=== PATIENT | male | born 1965 | race Caucasian/White ===

== ENCOUNTER → 2020-10-22 12:23 | Outpatient (BNVA) | payer OTHER, SELFPAY | PROVIDERS: PCP Internal Medicine; Referring Provider Internal Medicine; Visit Provider Nurse Practitioner | DX: K21.9 Gastro-esophageal reflux disease without esophagitis (principal); R10.13 Epigastric pain; K59.00 Constipation, unspecified; Z79.899 Other long term (current) drug therapy; Z87.891 Personal history of nicotine dependence | CPT/HCPCS: 99202 ==

== ENCOUNTER 2020-10-29 10:01 | Outpatient (REF) | payer OTHER, SELFPAY ==
[2020-10-29 11:24] LABS: Alanine Aminotransferase 50 U/L (0-40); Albumin Level 4.4 g/dL (3.5-5.0); Alkaline Phosphatase 103 U/L (39-117); Anion Gap 12 (12-20); Aspartate Amino Transferase 21 U/L (5-37); Bilirubin Total 1.9 mg/dL (0.0-1.0); Blood Urea Nitrogen 15 mg/dL (9-16); Calcium 9.7 mg/dL (8.4-10.2); Carbon Dioxide 27 mmol/L (22-29); Chloride 104 mmol/L (96-108); Estimated Glomerular Filt Rate > 60; Glucose Random 96 mg/dL (60-115); Potassium 4.1 mmol/l (3.3-5.1); Sodium 139 mmol/L (135-145); Total Protein 7.1 g/dL (6.5-8.0)
== END 2020-10-29 10:02 | disposition home or self-care (01) ==
LOC: HO.LAB 10:01
PROVIDERS: PCP Internal Medicine; Visit Provider Nurse Practitioner
DX: R10.13 Epigastric pain (principal); K59.00 Constipation, unspecified; K21.9 Gastro-esophageal reflux disease without esophagitis
CPT/HCPCS: 80053

== ENCOUNTER 2020-11-04 15:18 | Outpatient (REF) | payer OTHER, SELFPAY | END 2020-11-04 15:19 | disposition home or self-care (01) | LOC: HO.LAB 15:18 | PROVIDERS: Visit Provider Nurse Practitioner | DX: K21.9 Gastro-esophageal reflux disease without esophagitis (principal); K59.00 Constipation, unspecified; R10.13 Epigastric pain | CPT/HCPCS: 87338 ==

== ENCOUNTER → 2020-11-13 14:10 | Outpatient (BNVA) | payer OTHER, SELFPAY | PROVIDERS: PCP Internal Medicine; Visit Provider Nurse Practitioner | DX: Z13.89 Encounter for screening for other disorder (principal) | CPT/HCPCS: Q3014 ==

== ENCOUNTER → 2020-11-28 13:08 | Outpatient (BNVA) | payer OTHER, SELFPAY | PROVIDERS: PCP Internal Medicine; Visit Provider Nurse Practitioner | DX: Z13.89 Encounter for screening for other disorder (principal) | CPT/HCPCS: Q3014 ==

== ENCOUNTER 2020-12-20 07:16 | Outpatient (REF) | payer OTHER, SELFPAY | END 2020-12-20 07:17 | disposition home or self-care (01) | LOC: HO.LAB 07:16 | PROVIDERS: Visit Provider Internal Medicine | DX: Z20.822 Contact with and (suspected) exposure to COVID-19 (principal) | CPT/HCPCS: 36415; C9803; U0003 ==

== ENCOUNTER → 2020-12-26 13:44 | Outpatient (BNVA) | payer OTHER, SELFPAY | PROVIDERS: PCP Internal Medicine; Visit Provider Nurse Practitioner | DX: Z13.89 Encounter for screening for other disorder (principal) | CPT/HCPCS: Q3014 ==

== ENCOUNTER → 2021-01-09 15:10 | Outpatient (BNVA) | payer OTHER, SELFPAY | PROVIDERS: PCP Internal Medicine; Visit Provider Nurse Practitioner | DX: Z13.89 Encounter for screening for other disorder (principal) | CPT/HCPCS: Q3014 ==

== ENCOUNTER 2021-01-11 07:13 | Outpatient (REF) | payer OTHER, SELFPAY ==
[2021-01-11 08:16] LABS: Alanine Aminotransferase 38 U/L (0-40); Albumin Level 4.5 g/dL (3.5-5.0); Alkaline Phosphatase 116 U/L (39-117); Amylase 185 U/L (28-100); Anion Gap 12 (12-20); Aspartate Amino Transferase 20 U/L (5-37); Bilirubin Direct 0.3 mg/dL (0.0-0.5); Bilirubin Total 1.3 mg/dL (0.0-1.0); Blood Urea Nitrogen 18 mg/dL (9-16); C Reactive Protein 0.11 mg/dL (< or = 0.50); Calcium 9.9 mg/dL (8.4-10.2); Carbon Dioxide 31 mmol/L (22-29); Chloride 102 mmol/L (96-108); Cholesterol 222 mg/dL; Estimated Glomerular Filt Rate > 60; Glucose Fasting 97 mg/dL (60-99); HDL Cholesterol 49 mg/dL; LDL Cholesterol Calculated 118 mg/dl; Lactate Dehydrogenase 174 U/L (118-273); Lipase 47 U/L (8-78); Potassium 4.1 mmol/L (3.3-5.1); Sodium 141 mmol/L (135-145); Total Protein 7.2 g/dL (6.5-8.0); Triglycerides 277 mg/dL
[2021-01-11 08:38] LABS: Ferritin 185 ng/mL (20-250)
[2021-01-12 14:07] LABS: Anti Nuclear Antibody Screen NEGATIVE (NEGATIVE)
[2021-01-13 13:37] LABS: Mitochondrial Antibodies NEGATIVE (NEGATIVE)
[2021-01-15 00:32] LABS: Smooth Muscle Antibody <20 U (<20)
== END 2021-01-11 07:14 | disposition home or self-care (01) ==
LOC: HO.LAB 07:13
PROVIDERS: Absent Provider Nurse Practitioner; PCP Internal Medicine; Visit Provider Internal Medicine
DX: R10.13 Epigastric pain (principal); R17 Unspecified jaundice; R79.89 Other specified abnormal findings of blood chemistry; E78.5 Hyperlipidemia, unspecified
CPT/HCPCS: 80053; 80061; 82150; 82248; 82728; 83615; 83690; 86038; 86039; 86140; 86255; 86256

== ENCOUNTER → 2021-01-30 13:55 | Outpatient (BNVA) | payer OTHER, SELFPAY | PROVIDERS: PCP Internal Medicine; Visit Provider Nurse Practitioner | DX: Z13.89 Encounter for screening for other disorder (principal) | CPT/HCPCS: Q3014 ==

== ENCOUNTER → 2021-04-09 07:47 | Outpatient (REF) | payer OTHER, SELFPAY ==
--- NOTE | ~2021-04-09 | NM_ITS ---
EXAMINATION: RADIONUCLIDE SOLID FOOD GASTRIC EMPTYING 4-HOUR STUDY CLINICAL INFORMATION: Epigastric pain. COMPARISON: No previous gastric emptying study is available for comparison. TECHNIQUE: A standard meal consisting of 4 oz of Egg Beaters brand tagged with 1.0 mCi Tc-99m Sulfur Colloid, 8 oz water and 2 slices of toast with jelly was administered orally to the patient. Images were obtained using a dual head gamma camera in the anterior and posterior projections over of the stomach immediately post ingestion and at hourly intervals up to 3 hours post ingestion. Images were not obtained at 4 hours due to the minimal retention at 3 hours. The anterior and posterior counts at each time interval were averaged using the geometric mean and expressed as percentage of the immediate post ingestion counts. FINDINGS: There is good visualization of activity in the stomach immediately post ingestion. As the study progresses, there is good clearance of activity from the stomach and visualization of progressively increasing small bowel activity. By the end of the study, there is almost no retention noted in the stomach. Retention in the stomach at each time interval was: 1 hour 76% (normal 37%-90%) 2 hours 12% (normal 30%-60%) 3 hours 2% 4 hours (Not Obtained) (normal 0%-10%) NM/NM gastric emptying study IMPRESSION: Normal solid food gastric emptying study.
--- NOTE | ~2021-04-09 | XR_ITS ---
EXAMINATION: XR HAND, RIGHT CLINICAL INFORMATION: Pain COMPARISON: None TECHNIQUE: PA, lateral, and oblique views of the right hand. FINDINGS: Bone alignment is normal. No fracture or dislocation is seen. There is mild arthritis at the first [facility] joint with joint space narrowing and osteophyte formation. Soft tissues are unremarkable. XR/XR hand RT 2V IMPRESSION: Mild arthritis at the first [facility] joint.
== END ==
LOC: HO.NUCMED 07:47
PROVIDERS: PCP Internal Medicine; Visit Provider Nurse Practitioner
DX: R10.13 Epigastric pain (principal); M79.641 Pain in right hand
CPT/HCPCS: 73120; 78264; A9541

== ENCOUNTER 2021-04-22 10:00 | Outpatient (RCR) | payer OTHER, SELFPAY ==
--- NOTE | 2021-04-14 11:00 | MHC.OT.OEV ---
[address] [phone] F: [phone] Occupational Therapy Evaluation Diagnosis: Right hand pain Date of Onset: 12/30/20 Date of Surgery: Attending Provider: Dr Phu Villalta Prescribed Treatment: Eval and Jonathan CABRERA Follow Up Appointment: History of Current Condition: 55 yo male presents with persistent pain in right thumb. Was seen by housing director and now referred to OT for management of CMC arthritis. 04/09/21 X-ray FINDINGS: Bone alignment is normal. No fracture or dislocation is seen. There is mild arthritis at the first [facility] joint with joint space narrowing and osteophyte formation. Soft tissues are unremarkable. IMPRESSION: Mild arthritis at the first [facility] joint Significant Medical History: Precautions/Contraindications: Patient Goals: Decrease pain in hand/thumb Hand Dominance: Right Observations: QuickDASH Score: Prior Level of Function and Occupation Self Care, Employment, Leisure: Not working, pain in the back/waist/hip, watches a lot of tv, cleans his car, shares homecare with his mother Living Situation, Family and/or Social Support: Lives w/ his mother Current Level of Function and Occupation Self Care, Employment, Leisure: Difficulty picking up heavy objects, opening containers Sleep: No issues Driving: No issues Vision: Balance: Pain Assessment Pain Score: 5 Pain Scale Used: Numeric (0 - 10) Pain Location and Description: Right thumb base, sharp Aggravating Factors: Using the hand for heavy tasks, more pain at nighttime Alleviating Factors: None tried Skin and Soft Tissue Assessment Skin and Soft Tissue: Comments: Nerve assessment Ulnar Nerve: WFL Median Nerve: WFL Radial Nerve: WFL Comments: Sensory Assessment Temperature: WFL Light Touch: WFL Proprioception: WFL Vibration: Comments: Denies sensory changes Edema Assessment Upper Extremity: WNL Lower Extremity: Comments: Dexterity Assessment Dexterity: WFL Comments: Special Tests Comments: (+) Grind test Left hand AROM(PROM) Strength Cervical Cervical Flexion: Cervical Extension: Cervical Lateral Flexion: Cervical Rotation: Comments: WNL Shoulder Flexion: Extension: Abduction: Internal Rotation: External Rotation: Comments: WNL Flexion: Extension: Abduction: Internal Rotation: External Rotation: Comments: Elbow Flexion: Extension: Pronation: Supination: Comments: WNL Flexion: Extension: Pronation: Supination: Comments: Wrist Flexion: Extension: Ulnar Deviation: Radial Deviation: Comments: WNL Flexion: Extension: Ulnar Deviation: Radial Deviation: Comments: Thumb Thumb CMC Flexion: Thumb MCP Flexion: Thumb IP Flexion: Radial Abduction: Palmar Abduction: Mccomb (Kapandji 0-10): Comments: WNL Digits Index MCP: PIP: DIP: Long MCP: PIP: DIP: Ring MCP: PIP: DIP: Small MCP: PIP: DIP: Comments: WNL Gross Grasp: R 100lb L 110lb Lateral Pinch: R 7 L 10 Two-Point Pinch: R 7 L 8 Three-Jaw Omar: R 9 L 13 Comments: Patient Education Primary Language: Cad Detailer Required: Yes Current Knowledge: Understands information with skills for self-management Teaching Method: Demonstration Handouts Verbal Education Needs Identified on Evaluation: ADL's Disease Information Equipment Use Exercise Pain Safety How did patient/family demonstrate learning? Patient demonstrates Patient verbalizes Barriers to Learning: Vision Readiness for Learning: Accepting Who was educated? Patient Comments: Joint protection w/ CMC arthritis Plan of Care Assessment: 55 right hand dominant male presents w/ right hand pain, x-ray shows mild CMC arthritis. He reports being relativelyt sedentary, not working but occasioanlly walks and shares household duties with his mother. On assessment, he has good range and strength of both hands, no loss of sensation or coordination, primary limiting factor is pain. He will benefit from cont'd therapy services to address pain managemnt, joint protection and activity modification. STG Duration: 3 weeks Short Term Goals: Ind w/ CMC orthosis wear Good follow through w/ joint protection techniques Ind w/ HEP Prgression to strengthening for CMC stabilizers LTG Duration: Prison Goals: Frequency and Duration: The patient will be seen 2x/wk for 3 weeks Treatment Plan: Therapeutic Exercise Therapeutic Activity Home Exercise Program Splinting Patient Education ADL Training Ultrasound Paraffin Fluidotherapy MHP Cold Packs Joint Mobilization Soft Tissue Mobilization Kinesiotaping Electronically Signed By: Saranya Orellana OTR/L Reviewed/agree with student documentation: N/A Therapist: Please sign and return to therapist, Thank you for your referral.
--- NOTE | 2021-04-22 10:28 | MHC.OT.DC ---
[address] [phone] F: [phone] Occupational Therapy Discharge Note Provider: Dr Phu Villalta Diagnosis: Right hand pain Date of Evaluation: 04/14/21 Treatments to Date: 3 Discharge Status: Achieved Goals Improved Function Independent with HEP Discharge Summary: Continues to have low pain in right CMC, good follow through w/ HEP and joint protection. Goals met for self management of CMC arthritis pain and protection. Electronically Signed By: Saranya Orellana OTR/L Reviewed/agree with student documentation: N/A Therapist: Please Sign and return to therapist, thank you for your referral.
== END 2021-04-22 10:29 | disposition other institution (70) ==
LOC: HO.OT 10:00
PROVIDERS: Visit Provider Internal Medicine
DX: M79.641 Pain in right hand (principal)
CPT/HCPCS: 29130; 97018; 97110; 97140; 97165

== ENCOUNTER 2021-04-23 08:21 | Outpatient (REF) | payer OTHER, SELFPAY ==
--- NOTE | ~2021-04-23 | CT_ITS ---
EXAMINATION: CT ABDOMEN AND PELVIS WITHOUT CONTRAST CLINICAL INFORMATION: Abnormal serum enzyme levels. COMPARISON: None TECHNIQUE: Multidetector volumetric imaging was performed from the superior aspect of the liver through the pubic symphysis. Sagittal and coronal reformatted images were obtained on the technologist's workstation. This CT examination was performed using dose optimization techniques as appropriate, variously including the following: *Automated exposure control *Adjustment of mA and/or kV according to patient size (this includes techniques or standardized protocols for targeted exams where dose is matched to indication/reason for exam; i.e. extremities or head) *Use of iterative reconstruction technique DLP: 399 mGy-cm FINDINGS: LUNG BASES: There is a 4 mm calcified nodule right lung base. The heart size is normal. LIVER, GALLBLADDER, AND BILIARY TREE: The liver is normal in size, shape, and attenuation. No focal hepatic lesion or biliary ductal dilatation is present. The gallbladder is unremarkable with no evidence of radiopaque gallstones, gallbladder wall thickening, or obvious pericholecystic inflammatory changes. PANCREAS: Unremarkable. SPLEEN: Unremarkable. ADRENAL GLANDS: Unremarkable. KIDNEYS AND URETERS: The kidneys are normal in size, shape, and attenuation. No hydronephrosis, hydroureter, or calculi seen. No perinephric stranding. There is 1 cm upper pole right kidney and 3 mm and 5 mm hypodensity midpole left kidney. BLADDER: Unremarkable. GASTROINTESTINAL TRACT: There is scattered stool, gas and oral contrast seen throughout the colon without any significant distention. The small bowel loops are normal caliber. Appendix is not visualized. ABDOMINAL WALL: No significant hernia is appreciated. LYMPH NODES: Normal. VASCULAR: Unremarkable. PELVIC VISCERA: The prostate gland is mildly enlarged and heterogeneous. The periprostatic fat planes are normal. No pelvic lymph node seen. OSSEOUS STRUCTURES: No lytic or sclerotic process seen. CT/CT abdomen pelvis wo con IMPRESSION: No acute intra-abdominal process seen. There is a 4 mm calcified nodule right lung base.
[2021-04-23 09:50] LABS: Blood Urea Nitrogen 13 mg/dL (9-16); Estimated Glomerular Filt Rate > 60
[2021-04-23] MEDS: iohexoL 350 MG/ML 100 ML INFUS..BTL IV (11:19)
== END 2021-04-23 08:22 | disposition home or self-care (01) ==
LOC: HO.CT 08:21
PROVIDERS: Visit Provider Nurse Practitioner
DX: R10.13 Epigastric pain (principal); R74.8 Abnormal levels of other serum enzymes; K59.00 Constipation, unspecified
CPT/HCPCS: 36415; 74176; 82565; 84520; Q9967

== ENCOUNTER → 2021-05-27 08:17 | Outpatient (BNVA) | payer OTHER, SELFPAY | PROVIDERS: PCP Internal Medicine; Visit Provider Nurse Practitioner | CPT/HCPCS: Q3014 ==

== ENCOUNTER 2021-07-07 09:52 | Outpatient (REF) | payer OTHER, SELFPAY ==
[2021-07-07 10:49] LABS: Alanine Aminotransferase 45 U/L (0-40); Albumin Level 4.4 g/dL (3.5-5.0); Alkaline Phosphatase 110 U/L (39-117); Anion Gap 11 (12-20); Aspartate Amino Transferase 30 U/L (5-37); Bilirubin Total 1.3 mg/dL (0.0-1.0); Blood Urea Nitrogen 15 mg/dL (9-16); Calcium 9.4 mg/dL (8.4-10.2); Carbon Dioxide 29 mmol/L (22-29); Chloride 106 mmol/L (96-108); Cholesterol 203 mg/dL; Estimated Glomerular Filt Rate > 60; Glucose Fasting 100 mg/dL (60-99); HDL Cholesterol 42 mg/dL; LDL Cholesterol Calculated 129 mg/dl; Potassium 4.5 mmol/L (3.3-5.1); Sodium 141 mmol/L (135-145); Total Protein 7.1 g/dL (6.5-8.0); Triglycerides 161 mg/dL
[2021-07-10 19:16] LABS: Vitamin D 25-OH, D2 <4 ng/mL; Vitamin D 25-OH, D3 40 ng/mL; Vitamin D 25-OH, Total 40 ng/mL (30-100)
== END 2021-07-07 09:53 | disposition home or self-care (01) ==
LOC: HO.LAB 09:52
PROVIDERS: PCP Internal Medicine; Visit Provider Internal Medicine
DX: K86.89 Other specified diseases of pancreas (principal); E78.5 Hyperlipidemia, unspecified; E55.9 Vitamin D deficiency, unspecified
CPT/HCPCS: 36415; 80053; 80061; 82306

== ENCOUNTER 2021-07-10 13:52 | Outpatient (REF) | payer OTHER, SELFPAY ==
--- NOTE | ~2021-07-10 | CT_ITS ---
EXAMINATION: CT CHEST WITH CONTRAST CLINICAL INFORMATION: Pulmonary nodule. COMPARISON: Most recent CT abdomen/pelvis dated 04/23/2021. TECHNIQUE: Multidetector volumetric CT imaging of the chest was obtained after the administration of 65 mL of Omnipaque 350 intravenous contrast without immediate adverse reactions. Axial MIP volume rendering provided. Sagittal and coronal reformatted images were obtained. This CT examination was performed using dose optimization techniques as appropriate, variously including the following: *Automated exposure control *Adjustment of mA and/or kV according to patient size (this includes techniques or standardized protocols for targeted exams where dose is matched to indication/reason for exam; i.e. extremities or head) *Use of iterative reconstruction technique DLP: 116 mGy-cm. FINDINGS: GAS ANALYST: Unremarkable. LUNGS: Evaluation somewhat limited secondary to respiratory motion. There are scattered tiny calcified granulomas measuring up to 0.4 cm within the right lower lobe. The right lower lobe calcified granuloma is unchanged. No noncalcified pulmonary nodule. No pulmonary mass or confluent airspace consolidation. The central airways are patent. MEDIASTINUM: No cardiomegaly. No pericardial effusion. No thoracic aortic dilatation or dissection. The central pulmonary arteries are unremarkable. No superior mediastinal or hilar lymphadenopathy. Unremarkable thyroid. PLEURA: There is no pleural effusion. No pleural mass or thickening. AXILLA: No lymphadenopathy. UPPER ABDOMEN: Unremarkable. OSSEOUS STRUCTURES: Unremarkable. CT/CT chest w con IMPRESSION: 1. Scattered calcified granulomas measuring up to 0.4 cm within the right lower lobe. No follow-up imaging is recommended. 2. No noncalcified pulmonary nodule, mass, or airspace consolidation. 3. No lymphadenopathy.
[2021-07-10] MEDS: iohexoL 350 MG/ML 100 ML INFUS..BTL 65 ML IV (14:50)
== END 2021-07-10 13:53 | disposition home or self-care (01) ==
LOC: HO.CT 13:52
PROVIDERS: PCP Internal Medicine; Visit Provider Internal Medicine
DX: R91.1 Solitary pulmonary nodule (principal)
CPT/HCPCS: 71260; Q9967

== ENCOUNTER → 2021-08-15 09:02 | Outpatient (BNVA) | payer OTHER, SELFPAY | PROVIDERS: PCP Internal Medicine; Visit Provider Nurse Practitioner | CPT/HCPCS: Q3014 ==

== ENCOUNTER → 2021-12-11 09:36 | Outpatient (BNVA) | payer OTHER, SELFPAY | PROVIDERS: PCP Internal Medicine; Referring Provider Internal Medicine; Visit Provider Nurse Practitioner | DX: K21.9 Gastro-esophageal reflux disease without esophagitis (principal); K59.00 Constipation, unspecified; R10.13 Epigastric pain | CPT/HCPCS: 99212 ==

== ENCOUNTER 2022-01-16 10:34 | Day surgery (SDC) | payer OTHER, SELFPAY ==
[2022-01-12 11:41] VITALS: BMI 27.8
--- NOTE | 2022-01-15 10:25 | P.CONAN_ITS ---
Documented by User: Denice St NP 01/15/22 10:25 HPI - Anesthesia Eval Consult details Narrative: 56yo M for Upper Endoscopy PMFSH Active Problems Active Problems: All Active Problems (Updated 01/06/22 @ 11:46 by Rajani Villalta MD) Physical exam (Acute) Chest pain (Acute) Pulmonary nodule (Acute) Pancreatic insufficiency (Acute) Right hand pain (Acute) Elevated amylase (Acute) Insomnia (Acute) Right hip pain (Acute) Dyslipidemia (Acute) Elevated LFTs (Acute) Elevated bilirubin (Acute) Abdominal bloating (Acute) Constipation (Acute) Epigastric pain (Acute) GERD (gastroesophageal reflux disease) (Acute) Past Medical History Medical History (Updated 01/06/22 @ 11:46 by Rajani Villalta MD) Chest pain Dyslipidemia H. pylori infection Insomnia Physical exam Pulmonary nodule Right hand pain Right hip pain Total bilirubin, elevated Family History Family History Father No problems noted. Mother Hypercholesteremia Heart problem Diabetes Surgical History Surgical History History of esophagogastroduodenoscopy (EGD) Hx of colonoscopy Social History Social History Household Members: Family Housing: Apartment Alcohol intake: former Patient Tobacco Use Status: Former Tobacco user Tobacco use type: Cigarette Smoked in Last 30 Days: No e-Cigarette/Vaping Use: Never Used Second Hand Smoke Exposure: No Use of substances other than those prescribed or required for medical reasons: No Are you DNR?: No Advance Directives: No Advance Directives Information Provided: Yes service: No Current occupational status: disabled Meds Allergies Allergy/AdvReac Type Severity Reaction Status Date / Time No Known Allergies Allergy Verified 01/16/22 10:55 Exam Exam Date and Time: January 15, 2022 1025 Height,Weight and Vital Signs: Height 5 ft 8 in Weight 83.007 kg Assessment and Plan Assessment Anesthesia Assessment: Chart Reviewed Documented by User: Jaguar Munguia MD 01/16/22 11:37 HPI - Anesthesia Eval Consult details Narrative: 56yo M for Upper Endoscopy h/o chronic chest pain , saw rotary peel oven tender , work up negative including stress test . denies current chest pain . [facility] Past Medical History Medical History (Updated 01/06/22 @ 11:46 by Rajani Villalta MD) Chest pain Dyslipidemia H. pylori infection Insomnia Physical exam Pulmonary nodule Right hand pain Right hip pain Total bilirubin, elevated Family History Family History Father No problems noted. Mother Hypercholesteremia Heart problem Diabetes Family history of problems with anesthesia: No Surgical History Surgical History History of esophagogastroduodenoscopy (EGD) Hx of colonoscopy History of Problems with Anesthesia: No Social History Social History Household Members: Family Housing: Apartment Alcohol intake: former Patient Tobacco Use Status: Former Tobacco user Tobacco use type: Cigarette Smoked in Last 30 Days: No e-Cigarette/Vaping Use: Never Used Second Hand Smoke Exposure: No Use of substances other than those prescribed or required for medical reasons: No Are you DNR?: No Advance Directives: No Advance Directives Information Provided: Yes service: No Current occupational status: disabled Meds Allergies Allergy/AdvReac Type Severity Reaction Status Date / Time No Known Allergies Allergy Verified 01/16/22 10:55 Exam Airway Mallampati Class: III TM Dist: >3cm Neck ROM: Full Loose/Missing/Broken Teeth: Yes Heart: rrr Lungs: bl breath sounds Assessment and Plan Assessment Anesthesia Assessment: Anesthesia Plan Discussed Final Anesthetic Review Family History of Problems with Anesthesia: No History of Problems with Anesthesia: No NPO: Yes ASA Class: II Final Preanesthetic Review: Meds/Allgs Chart Reviewed, Consent Obtained/Reviewed and Anes Risks/Benef Reviewed Patient Risk: Intermediate Procedure Risk: Intermediate Anesthetic Plan Anesthetic Plan: MAC: Disposition: Standard PACU
[2022-01-16 10:43] VITALS: BP 126/81; PULSE 81; RESP 16; TEMP 36.4; O2SAT 98
[2022-01-16 10:47] VITALS: BMI 27.6
[2022-01-16] MEDS: Lactated Ringers 1,000 ML 100 ML IVCONT (10:57)
--- NOTE | 2022-01-16 11:04 | MHC.SHP ---
Pre-Procedural Eval Section A Date of Service: 01/16/22 The patient is an INPATIENT: No The History & Physical has been completed within 30 days and I have reviewed it.: No Section B Chief Complaint: GERD, Epigastric Pain Details of Present Illness: GERD, abd pain Relevant Family History (Specify if Yes): No Relevant Social History: Tobacco Use (past smoker) Present Medications: see Short Stay Collaborative assessment Medical History: Significant History (Chest pain Dyslipidemia H. pylori infection Insomnia Pulmonary nodule Right hand pain Right hip pain Total bilirubin, elevated) History of Previous Operations: Relevant previous surgery/procedure and date(s) (History of esophagogastroduodenoscopy (EGD) Hx of colonoscopy) Allergies: Allergies Allergy/AdvReac Type Severity Reaction Status Date / Time No Known Allergies Allergy Verified 01/16/22 10:55 Review of Systems Sugical H&P ROS: Negative: Constitution, Cardiovascular and Respiratory and Yes, Specify: Gastrointestinal (GERD, abd pain) Exam Surgical H&P Exam: Normal: Heart, Normal: Lungs, Normal: Extremities and Normal: Abdomen Plan Diagnosis/Plan: Unchanged I have reviewed the history and physical and performed a pertinent physical examination on my patient. No changes have occurred unless specified.
--- NOTE | 2022-01-16 11:12 | P.OP_ITS ---
Operative Note Operative Note Date of Service: 01/16/22 Narrative: Pre-op diagnosis: GERD, upper abdominal pain Post-op diagnosis:?other (Gastritis, multiple duodenal ulcers) Procedure: FLEXIBLE TRANSORAL UPPER GASTROINTESTINAL ENDOSCOPY WITH BIOPSIES Consent:?Indications for the procedure and potential complications of bleeding, perforation, reaction to medications and missed diagnosis were discussed with the patient and informed consent was obtained. Instrument:?Olympus GIF H 190 mid size upper endoscope Monitoring: Vital signs and clinical assessment, continuous EKG monitoring, Pulse oximetry, Carbon Dioxide monitoring and blood pressure monitoring were done throughout the procedure. Procedure:?The patient was placed in the left lateral decubitis position and pre-procedure medications were administered and a bite block was placed. The endoscope was inserted into the mouth and advanced under direct vision to the third part of duodenum. A careful inspection was made as the upper endoscope was withdrawn including a retroflexed examination of the proximal stomach; Findings and interventions are described below. Findings: Larynx:? Normal Esophagus: GE junction at 40 cms. No esophagitis or Hoskins's. Stomach: Moderate diffuse gastric erythema with prominent gastric folds - biopsied. Biopsies were obtained from the antrum to check for H pylori. Grade 2 flap valve on retroflexed examination of the cardia. Duodenum: Multiple 5 mm to 1 cms superficial ulcers in the bulb and proximal descending duodenum - biopsies were obtained.? Biopsies were obtained from 3rd part of the duodenal to check for celiac sprue Intervention: Biopsies as noted above Impression and Post Procedure Diagnosis: Endoscopy Findings: ESOPHAGUS: GE junction at 40 cms. No esophagitis or Hoskins's. STOMACH: Moderate diffuse gastric erythema with prominent gastric folds - biopsied. Biopsies were obtained from the antrum to check for H pylori. DUODENUM: Multiple 5 mm to 1 cms superficial ulcers in the bulb and proximal descending duodenum - biopsies were obtained.? Biopsies were obtained from 3rd part of the duodenal to check for celiac sprue Plan: Await pathology results Patient has an appointment on 01/30/22 in the GI Clinic with? Gini Rodrigues NP . Above findings were reviewed with the patient and GERD and PUD handouts were given in the discharge area Surgeon: Lilliam Altman MD Anesthesia:?MAC (Caitlin, [place]ien[place], SENIOR COMPENSATION ANALYST) Was an Blade Balancer used for this Procedure?:?Yes Blade Balancer:?Brisa Slaughter Estimated blood loss (mL):?0 Pathology:?other (A. small bowel bxs, R/O celiac? B. duodenal ulcer bxs? C. gastric antrum bxs, R/O H. pylori? D. gastric fold, R/O gastritis) Condition:?stable Disposition:?PACU
[2022-01-16 11:38] VITALS: BP 108/64; PULSE 75; RESP 18; TEMP 36.3; O2SAT 98
[2022-01-16 11:53] VITALS: BP 125/71; PULSE 63; RESP 16; TEMP 36.3; O2SAT 96
== END 2022-01-16 12:06 | disposition home or self-care (01) ==
PROVIDERS: PCP Internal Medicine; Visit Provider Internal Medicine Gastroenterology
PROC: 0DJ08ZZ Inspection of Upper Intestinal Tract, Via Natural or Artificial Opening Endoscopic (ICD-10-PCS; CPT 43235; principal; 2022-01-16 11:30)
DX: K21.9 Gastro-esophageal reflux disease without esophagitis (principal); K29.50 Unspecified chronic gastritis without bleeding; K26.9 Duodenal ulcer, unspecified as acute or chronic, without hemorrhage or perforation; K59.00 Constipation, unspecified; K86.89 Other specified diseases of pancreas; E78.5 Hyperlipidemia, unspecified; R07.9 Chest pain, unspecified; R17 Unspecified jaundice; R91.1 Solitary pulmonary nodule; R74.8 Abnormal levels of other serum enzymes; Z79.899 Other long term (current) drug therapy; Z87.891 Personal history of nicotine dependence
CPT/HCPCS: 43239; 88305; 88342

== ENCOUNTER 2022-01-30 10:38 | Outpatient (REF) | payer OTHER, SELFPAY ==
[2022-01-30 13:43] LABS: Alanine Aminotransferase 32 U/L (0-40); Albumin Level 4.3 g/dL (3.5-5.0); Alkaline Phosphatase 100 U/L (39-117); Anion Gap 10 (12-20); Aspartate Amino Transferase 22 U/L (5-37); Bilirubin Total 1.1 mg/dL (0.0-1.0); Blood Urea Nitrogen 15 mg/dL (9-16); C Reactive Protein 0.23 mg/dL (< or = 0.50); Calcium 10.2 mg/dL (8.4-10.2); Carbon Dioxide 29 mmol/L (22-29); Chloride 106 mmol/L (96-108); Cholesterol 205 mg/dL; Estimated Glomerular Filt Rate > 60; Glucose Fasting 91 mg/dL (60-99); HDL Cholesterol 42 mg/dL; LDL Cholesterol Calculated 126 mg/dl; Potassium 4.4 mmol/L (3.3-5.1); Sodium 141 mmol/L (135-145); Triglycerides 188 mg/dL
[2022-02-04 02:37] LABS: Vitamin D 25-OH, D2 <4 ng/mL; Vitamin D 25-OH, D3 28 ng/mL; Vitamin D 25-OH, Total 28 ng/mL (30-100)
[2022-02-04 12:22] LABS: Transglutaminase Ab IgG <1.0 U/mL; Transglutaminase IgA <1.0 U/mL
== END 2022-01-30 10:39 | disposition home or self-care (01) ==
LOC: HO.LAB 10:38
PROVIDERS: PCP Internal Medicine; Referring Provider Internal Medicine; Visit Provider Nurse Practitioner
DX: R10.13 Epigastric pain (principal); K21.9 Gastro-esophageal reflux disease without esophagitis; K26.9 Duodenal ulcer, unspecified as acute or chronic, without hemorrhage or perforation; E55.9 Vitamin D deficiency, unspecified; E78.5 Hyperlipidemia, unspecified
CPT/HCPCS: 36415; 80053; 80061; 82306; 86003; 86140; 86364; 99212

== ENCOUNTER → 2022-03-03 14:23 | Outpatient (BNVA) | payer OTHER, SELFPAY | PROVIDERS: PCP Internal Medicine; Referring Provider Internal Medicine; Visit Provider Nurse Practitioner | DX: K59.04 Chronic idiopathic constipation (principal); K26.9 Duodenal ulcer, unspecified as acute or chronic, without hemorrhage or perforation; K21.9 Gastro-esophageal reflux disease without esophagitis; R10.13 Epigastric pain | CPT/HCPCS: 99212 ==

== ENCOUNTER → 2022-04-28 10:01 | Outpatient (BNVA) | payer OTHER, SELFPAY | PROVIDERS: PCP Internal Medicine; Referring Provider Internal Medicine; Visit Provider Nurse Practitioner | DX: K59.04 Chronic idiopathic constipation (principal); K26.9 Duodenal ulcer, unspecified as acute or chronic, without hemorrhage or perforation; K21.9 Gastro-esophageal reflux disease without esophagitis; R10.13 Epigastric pain | CPT/HCPCS: 99212 ==

== ENCOUNTER 2022-09-28 09:35 | Outpatient (REF) | payer OTHER, SELFPAY ==
[2022-09-28 11:05] LABS: Alanine Aminotransferase 42 U/L (0-40); Albumin Level 4.5 g/dL (3.5-5.0); Alkaline Phosphatase 102 U/L (39-117); Anion Gap 16 (12-20); Aspartate Amino Transferase 21 U/L (5-37); Bilirubin Total 1.4 mg/dL (0.0-1.0); Blood Urea Nitrogen 19 mg/dL (9-16); Calcium 10.2 mg/dL (8.4-10.2); Carbon Dioxide 26 mmol/L (22-29); Chloride 103 mmol/L (96-108); Cholesterol 254 mg/dL; Estimated Glomerular Filt Rate > 60; Glucose Fasting 100 mg/dL (60-99); HDL Cholesterol 43 mg/dL; LDL Cholesterol Calculated 167 mg/dl; Potassium 4.7 mmol/L (3.3-5.1); Sodium 140 mmol/L (135-145); Total Protein 7.3 g/dL (6.5-8.0); Triglycerides 224 mg/dL
[2022-09-28 11:29] LABS: Vitamin D 25-OH Total 30.2 ng/mL (>30)
== END 2022-09-28 09:36 | disposition home or self-care (01) ==
LOC: HO.LAB 09:35
PROVIDERS: PCP Internal Medicine; Visit Provider Internal Medicine
DX: E55.9 Vitamin D deficiency, unspecified (principal); K59.04 Chronic idiopathic constipation; E78.5 Hyperlipidemia, unspecified
CPT/HCPCS: 36415; 80053; 80061; 82306

== ENCOUNTER → 2022-12-29 11:45 | Outpatient (BNVA) | payer OTHER, SELFPAY | PROVIDERS: PCP Internal Medicine; Visit Provider Nurse Practitioner | DX: K59.04 Chronic idiopathic constipation (principal); K26.9 Duodenal ulcer, unspecified as acute or chronic, without hemorrhage or perforation; K21.9 Gastro-esophageal reflux disease without esophagitis; R10.13 Epigastric pain | CPT/HCPCS: 99212 ==

== ENCOUNTER → 2023-04-30 11:46 | Outpatient (BNVA) | payer OTHER, SELFPAY | PROVIDERS: PCP Internal Medicine; Visit Provider Nurse Practitioner | DX: K59.04 Chronic idiopathic constipation (principal); K21.9 Gastro-esophageal reflux disease without esophagitis; K26.9 Duodenal ulcer, unspecified as acute or chronic, without hemorrhage or perforation; K86.89 Other specified diseases of pancreas; R10.13 Epigastric pain | CPT/HCPCS: 99212 ==

== ENCOUNTER 2023-06-22 10:53 | Outpatient (AMB) | payer OTHER, SELFPAY ==
--- NOTE | 2023-06-22 10:55 | A.OFFVIS_ITS ---
Intake Vital Signs 06/22/23 10:56 Height 5 ft 8 in Weight 188 lb 0.869 oz BMI 28.6 BP 124/75 Blood Pressure Location Lt brachial Position Sitting Pulse 61 Intake Visit Reasons: 4 week fu Intake Note: Fidencio returns to in office visit today in follow up of epigastric pain. CC: Reports epigastric pain continues the same. Denies any other GI concerns today. Merchant Patroller Required: Yes Merchant Patroller Language: Senegalese Accompanied by: Self / Same As Patient Allergies No Known Allergies Allergy (Verified 06/22/23 10:57) HPI 4 week fu HPI Details Assessment & Plan (1) Chronic idiopathic constipation: ?Code(s): K59.04 - Chronic idiopathic constipation ?Plan: ?[place]e #Francie LIve He says he is sometimes good, sometimes bad, He still has constant epigastric/gastric pain despite being adherent to pantoprazole qam and famotidine qhs. He will also have mild nausea. The pain seems to be worse in the afternoon, so it sounds like the PPI effect is phasing out. He continues to move his bowels well with Trulance. ROV 4 weeks. (2) GERD (gastroesophageal reflux disease): ?Code(s): K21.9 - Gastro-esophageal reflux disease without esophagitis (3) Epigastric pain: ?Comment: In brief, this was a patient with extremely intractable epigastric pain and GERD that is not resolving despite multiple acid reducing agents.? He was treated for H pylori at another facility within on known regimen but it does not look like eradication was confirmed.? He had an EGD at this facility as well but I have not been able to obtain the records as it is [facility] in their difficult to get records from.? He has had negative gastric emptying study and a negative CT scan here.? WE DECIDED TO REPEAT THE ENDOSCOPY AT THIS FACILITY AND IT SHOWED DUODENAL ULCERS. ?Code(s): R10.13 - Epigastric pain (4) Duodenal ulcer: ?Comment: Discovered on 2021 EGD here at [facility] not H pylori ?Code(s): K26.9 - Duodenal ulcer, unspecified as acute or chronic, without hemorrhage or perforation (5) Pancreatic insufficiency: ?Code(s): K86.89 - Other specified diseases of pancreas ? ? ? Medications: New lansoprazole 30 mg? PO BID 60 c aps 6RF K26.9 - Duodenal u lcer, unspecified as acute or chroni c, without hemorrh age or perforation ? Refilled plecanatide (Trula nce) 3 mg? PO DAILY 30 tabs 6RF K59.04 - Chronic i diopathic constipa tion ? On Hold pantoprazole (Prot ag) ?? Hold Comm ent:? Doctor's Ord er 40 mg? PO QAM 30 d ays 30 tabs 6RF I K26.9 - Duodenal u lcer, unspecified as acute or chroni c, without hemorrh age or perforation TODAYS VISIT . [place]e #Tresa Live He says he received the lansoprazole, but his sx are unchanged. In the past he c ould not tolerated the carafate r/t severe CIC despite trying to compensate with Trulance and bisacodyl. He agrees we will repeat EGD to assess healing of his duodenal ulcers discovered last year. ROV 8 weeks. PFSH Medical History Chest pain Dyslipidemia H. pylori infection Insomnia Physical exam Pulmonary nodule Right hand pain Right hip pain Total bilirubin, elevated Surgical History History of esophagogastroduodenoscopy (EGD) Hx of colonoscopy Family History Father No problems noted. Mother Hypercholesteremia Heart problem Diabetes Social History Household Members: Family Housing: Apartment Alcohol intake: former Patient Tobacco Use Status: Former Tobacco user Tobacco use type: Cigarette e-Cigarette/Vaping Use: Never Used Second Hand Smoke Exposure: No service: No Current occupational status: disabled Cognitive needs: No Hearing needs: No Vision needs: Yes Review of Systems Const Denies fatigue, Denies fever(s), Denies night sweats, Denies poor appetite and Denies weight loss ENT Reports Normal hearing present, Denies dental pain, Denies dysphagia, Denies hearing loss, Denies mouth pain, Denies odynophagia, Denies throat swelling, Denies tongue swelling and Reports other (Dentition adequate) Card Reports no additional complaints Resp Reports no additional complaints GI Reports abdominal pain, Denies melena, Denies bloating, Denies hematochezia, Reports constipation, Denies GI cramping, Denies dysphagia, Denies excessive flatus, Denies early satiety, Reports heartburn, Denies diarrhea, Denies nausea, Denies odynophagia, Denies vomiting and Denies hematemesis Skin/Breast Denies pruritus, Denies lesions, Denies rash and Denies jaundice Neuro Reports Normal hearing present and Denies Abnormal speech present Endo Denies fatigue Aller/Immun Denies throat swelling and Denies tongue swelling Physical Exam Vital Signs: Last Vital Signs Pulse 61 06/22/23 10:56 BP 124/75 06/22/23 10:56 BMI result Body Mass Index 28.6 Const General: cooperative, no acute distress, well developed and well groomed Nutritional Appearance: average body habitus and well nourished Orientation/consciousness: oriented to person, oriented to place and oriented to time Limitations: language barrier HEENT Head: Yes normocephalic and Yes atraumatic Eyes General: appearance normal, both eyes and all related structures Pupils: Equal, round and reactive pupils present Neck Neck: Yes normal visual inspection and Yes no lymphadenopathy Thyroid: Thyroid normal Resp Effort & Inspection: normal respiratory effort and able to speak in complete sentences Auscultation: clear to auscultation bilaterally Cardio Rate: regular rate Rhythm: regular rhythm Heart sounds: Normal, physiologic split S2 sound present Peripheral pulses: radial pulses present and posterior tibial pulses present GI Inspection: No distended and No Abdominal panniculus present Palpation (GI): Soft to palpation, nontender, no guarding, not rigid and No hepatosplenomegaly present Percussion: Yes normal to percussion Auscultation: normal bowel sounds Rectal Exam - Male: Yes deferred Skin General skin exam: no rashes or lesions noted, turgor normal, skin not dry, no jaundice, No spider nevi and no striae Rashes: no rashes Nails: normal Neuro General: oriented to person, oriented to place and oriented to time Cranial nerves: Yes Equal, round and reactive pupils present and Yes Normal hearing present Speech: No Abnormal speech present Extrem General: Yes normal to inspection, No clubbing, No cyanosis and No edema Psych Appearance: grossly normal and well kempt Mental Status: mental status grossly normal Speech and movement: Normal speech and movement present Affect: normal affect Attitude: cooperative Thought process: Normal thought process present and not confabulating Thought content: Normal thought content present Insight: Limited insight present (Psych) Judgement: Limited judgement present (Psych) Assessment & Plan Assessment & Plan (1) Duodenal ulcer: Comment: Discovered on 2021 EGD here at [facility] not H pylori Code(s): K26.9 - Duodenal ulcer, unspecified as acute or chronic, without hemorrhage or perforation Plan: [place]e #Tresa Live He says he received the lansoprazole, but his sx are unchanged. In the past he could not tolerated the carafate r/t severe CIC despite trying to compensate with Trulance and bisacodyl. He agrees we will repeat EGD to assess healing of his duodenal ulcers discovered last year. ROV 8 weeks. (2) Chronic idiopathic constipation: Code(s): K59.04 - Chronic idiopathic constipation (3) GERD (gastroesophageal reflux disease): Code(s): K21.9 - Gastro-esophageal reflux disease without esophagitis (4) Pancreatic insufficiency: Code(s): K86.89 - Other specified diseases of pancreas Medications: Discontinued pantoprazole (Protonix) Discontinued Reason: Doctor's Order 40 mg PO QAM 30 days 30 tabs 6RF K26.9 - Duodenal ulcer, unspecified as acute or chronic, without hemorrhage or perforation Coding Level of Care Code Est Pt Level 3 (98229) Diagnoses Duodenal ulcer K26.9 Chronic idiopathic constipation K59.04 GERD (gastroesophageal reflux disease) K21.9 Pancreatic insufficiency K86.89
[2023-06-22 10:56] VITALS: BP 124/75; PULSE 61; BMI 28.6
== END 2023-06-22 12:45 | disposition home or self-care (01) ==
PROVIDERS: PCP Internal Medicine; Visit Provider Nurse Practitioner
DX: K26.9 Duodenal ulcer, unspecified as acute or chronic, without hemorrhage or perforation (principal); K59.04 Chronic idiopathic constipation; K21.9 Gastro-esophageal reflux disease without esophagitis; K86.89 Other specified diseases of pancreas
CPT/HCPCS: 99213

== ENCOUNTER → 2023-06-22 10:53 | Outpatient (BNVA) | payer OTHER, SELFPAY | PROVIDERS: PCP Internal Medicine; Visit Provider Nurse Practitioner | DX: K59.04 Chronic idiopathic constipation (principal); K26.9 Duodenal ulcer, unspecified as acute or chronic, without hemorrhage or perforation; K21.9 Gastro-esophageal reflux disease without esophagitis; K86.89 Other specified diseases of pancreas | CPT/HCPCS: 99212 ==

== ENCOUNTER 2023-07-06 10:35 | Outpatient (AMB) | payer OTHER, SELFPAY ==
[2023-07-06 10:37] VITALS: BP 112/74; PULSE 64; O2SAT 97; BMI 28.6
--- NOTE | 2023-07-06 10:37 | A.OFFPC_ITS ---
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 Accompanied by: Spouse Allergies No Known Allergies Allergy (Verified 07/06/23 10:50) Medication List - Last Reconciled 07/06/23 by Rajani Villalta MD atorvastatin 80 mg PO DAILY 90 days cholecalciferol (vitamin D3) 25 mcg PO DAILY 90 days ezetimibe 10 mg PO DAILY 90 days famotidine (Pepcid) 40 mg PO BEDTIME lansoprazole 30 mg PO BID plecanatide (Trulance) 3 mg PO DAILY trazodone 50 mg PO BEDTIME PRN 90 days Tobacco use date assessed: 01/07/23 Dental Screening Dental Screen Date: 07/06/23 Did you have a dental visit in the last 12 months?: No Did you have a dental problem in the last 6 months where you did not have access to dental care?: No Was dental information given to patient?: Patient has dentist HPI HPI Comments History of Present Illness Details This is a 57-year-old male with chronic idiopathic constipation, dyslipidemia, and duodenal ulcer that complains of right hip pain that has been present on rainy days. He had a hip surgery recently. X-ray will be order. Constipation stable with medications. On statins for dyslipidemia and lipid panel will be repeated. Denies any chest pain or shortness of breath. Has duodenal ulcer and still has some abdominal discomfort and would like a 2nd opinion. He is accompanied by ex . [facility] Medical History Chest pain Dyslipidemia H. pylori infection Insomnia Physical exam Pulmonary nodule Right hand pain Right hip pain Total bilirubin, elevated Surgical History History of esophagogastroduodenoscopy (EGD) Hx of colonoscopy Family History Father No problems noted. Mother Hypercholesteremia Heart problem Diabetes Social History Household Members: Family Housing: Apartment Alcohol intake: former Patient Tobacco Use Status: Former Tobacco user Tobacco use type: Cigarette e-Cigarette/Vaping Use: Never Used Second Hand Smoke Exposure: No service: No Current occupational status: disabled Cognitive needs: No Hearing needs: No Vision needs: Yes Questionnaire Thrive Questionnaire Date Thrive assessed: 01/07/23 MARU-7 AMB Questionnaire MARU-7 Date MARU - 7 assessed: 01/07/23 Source: Developed by Drs. Abbe Mata, Adeline Betancourt, Rebel Kong and colleagues, with an educational maribel from [employer]. Review of Systems Const All systems reviewed & are unremarkable except as noted in HPI and below Eyes Reports no additional complaints, Denies change in vision and Denies other visual disturbances Card Denies chest pain at rest, Denies chest pain with activity, Denies edema, Denies irregular heart rhythm, Denies claudication, Denies dyspnea, Denies dyspnea on exertion, Denies orthopnea, Denies paroxysmal nocturnal dyspnea and Denies slow heart rate Resp Denies cough, Denies dyspnea and Denies dyspnea on exertion GI Denies abdominal pain, Denies change in bowel habits, Denies excessive flatus, Denies nausea and Denies vomiting Denies urinary hesitancy, Denies urinary incontinence and Denies urinary urgency Musc Denies abnormal gait, Reports back pain, Denies atrophy, Denies deformity, Reports arthralgias and Denies limited range of motion Skin/Breast Denies bleeding lesions, Denies changing lesions and Denies rash Neuro Denies abnormal gait and Denies lack of coordination Physical exam (Primary Care) Vital Signs: Last Vital Signs Pulse 64 07/06/23 10:37 BP 112/74 07/06/23 10:37 Pulse Ox 97 07/06/23 10:37 Oxygen Delivery Method Room Air 07/06/23 10:37 BMI result Body Mass Index 28.6 Tobacco/Smoking Status: Tobacco use Status Tobacco use date assessed 01/07/23 07/06/23 10:39 Patient Tobacco Use Status Former Tobacco user 07/06/23 10:39 Tobacco use type Cigarette 07/06/23 10:39 e-Cigarette/Vaping Use Never Used 07/06/23 10:39 Thrive Assessment: Date of Thrive Assessment Date Thrive assessed 01/07/23 07/06/23 10:39 Eyes General: appearance normal, both eyes and all related structures Eyelids: Yes eyelids normal Conjunctivae: conjunctivae normal Neck Neck: Yes normal visual inspection and Yes supple Resp Effort & Inspection: normal respiratory effort Auscultation: clear to auscultation bilaterally Cardio Jugular venous distension: no JVD Rate: regular rate Rhythm: regular rhythm Heart sounds: S1 normal heart sound present and S2 normal heart sound present Extrem General: Yes full ROM Assessment and Plan Assessment & Plan (1) Duodenal ulcer: Comment: Discovered on 2021 EGD here at [facility] not H pylori Code(s): K26.9 - Duodenal ulcer, unspecified as acute or chronic, without hemorrhage or perforation Plan: Refer to another Gastroenterology for 2nd opinion. (2) Right hip pain: Code(s): M25.551 - Pain in right hip Plan: X-ray ordered. (3) Dyslipidemia: Code(s): E78.5 - Hyperlipidemia, unspecified Plan: Repeat lipid panel. Continue statins. Advised to start low-cholesterol diet. (4) Chronic idiopathic constipation: Code(s): K59.04 - Chronic idiopathic constipation Plan: Continue Trulance. Orders: Orders Comprehensive Harts. Panel Fast Today K59.04 - Chronic idiopathic constipation Lipid Panel Today E78.5 - Hyperlipidemia, unspecified Vitamin D 25-OH Total Today E55.9 - Vitamin D deficiency, unspecified PSA,Total (Free>4and<10) Today K26.9 - Duodenal ulcer, unspecified as acute or chronic, without hemorrhage or perforation, Z12.5 - Encounter for screening for malignant neoplasm of prostate XR hip RT min 2V Today M25.551 - Pain in right hip Referrals Gastroenterology Referral K26.9 - Duodenal ulcer, unspecified as acute or chronic, without hemorrhage or perforation Coding Level of Care Code Est Pt Level 4 (93013) Diagnoses Duodenal ulcer K26.9 Right hip pain M25.551 Dyslipidemia E78.5 Chronic idiopathic constipation K59.04 Time Spent (min) 22
== END 2023-07-06 11:03 | disposition home or self-care (01) ==
PROVIDERS: Visit Provider Internal Medicine
DX: K26.9 Duodenal ulcer, unspecified as acute or chronic, without hemorrhage or perforation (principal); M25.551 Pain in right hip; E78.5 Hyperlipidemia, unspecified; K59.04 Chronic idiopathic constipation
CPT/HCPCS: 99214

== ENCOUNTER 2023-07-06 13:24 | Outpatient (REF) | payer OTHER, SELFPAY ==
--- NOTE | ~2023-07-06 | XR_ITS ---
EXAMINATION: XR HIP, RIGHT EXAMINATION: XR hip RT min 2V CLINICAL INFORMATION: Reason for Exam M25.551 - Pain in right hip COMPARISON: None TECHNIQUE: Two views of the hip. FINDINGS: No acute fracture or dislocation. Status post total hip arthroplasty in apparent anatomic alignment. No evidence of hardware fracture or complication. Soft tissues are unremarkable. XR/XR hip RT min 2V IMPRESSION: Status post total hip arthroplasty in apparent anatomic alignment. No evidence of hardware fracture or complication.
== END 2023-07-06 13:25 | disposition home or self-care (01) ==
LOC: HO.XRAY 13:24
PROVIDERS: PCP Internal Medicine; Visit Provider Internal Medicine
DX: M25.551 Pain in right hip (principal)
CPT/HCPCS: 73502

== ENCOUNTER 2023-10-25 12:45 | Day surgery (SDC) | payer OTHER, SELFPAY ==
[2023-10-19 14:32] VITALS: BMI 28.6
--- NOTE | 2023-10-20 09:56 | HO.ANESPROP2 ---
Documented by User: Denice St NP 10/20/23 09:56 HPI - Anesthesia Eval Consult details Narrative: 57yo M for Upper Endoscopy PMF Active Problems Active Problems: All Active Problems (Updated 05/13/22 @ 10:17 by Rajani Villalta MD) Hypovitaminosis D (Acute) Chronic idiopathic constipation (Acute) Duodenal ulcer (Acute) Pancreatic insufficiency (Acute) Elevated amylase (Acute) Elevated LFTs (Acute) Elevated bilirubin (Acute) Abdominal bloating (Acute) Constipation (Acute) Epigastric pain (Acute) GERD (gastroesophageal reflux disease) (Acute) Physical exam (Acute) Chest pain (Acute) Pulmonary nodule (Acute) Right hand pain (Acute) Insomnia (Acute) Right hip pain (Acute) Dyslipidemia (Acute) Past Medical History Medical History Physical exam Chest pain Pulmonary nodule Right hand pain Total bilirubin, elevated Insomnia Right hip pain Dyslipidemia H. pylori infection Family History Family History Father No problems noted. Mother Hypercholesteremia Heart problem Diabetes Family history of problems with anesthesia: No Surgical History Surgical History (Updated 10/19/23 @ 14:23 by Paris Cordoba RN) History of esophagogastroduodenoscopy (EGD) Hx of colonoscopy History of Problems with Anesthesia: No Social History Household Members: Family Housing: Apartment Alcohol intake: former Patient Tobacco Use Status: Former Tobacco user Tobacco use type: Cigarette e-Cigarette/Vaping Use: Never Used Second Hand Smoke Exposure: No Advance Directives: No Advance Directives Information Provided: Yes service: No Current occupational status: disabled Cognitive needs: No Hearing needs: No Vision needs: Yes Meds Allergies Allergy/AdvReac Type Severity Reaction Status Date / Time No Known Allergies Allergy Verified 07/06/23 10:50 Exam Height,Weight and Vital Signs: Height 5 ft 8 in Weight 85.275 kg Assessment and Plan Assessment Anesthesia Assessment: Chart Reviewed Final Anesthetic Review Family History of Problems with Anesthesia: No History of Problems with Anesthesia: No Documented by User: Emma Tejada MD 10/25/23 13:41 PMF Past Medical History Medical History Physical exam Chest pain Pulmonary nodule Right hand pain Total bilirubin, elevated Insomnia Right hip pain Dyslipidemia H. pylori infection Family History Family History Father No problems noted. Mother Hypercholesteremia Heart problem Diabetes Surgical History Surgical History (Updated 10/19/23 @ 14:23 by Paris Cordoba RN) History of esophagogastroduodenoscopy (EGD) Hx of colonoscopy Social History Household Members: Family Housing: Apartment Alcohol intake: former Patient Tobacco Use Status: Former Tobacco user Tobacco use type: Cigarette e-Cigarette/Vaping Use: Never Used Second Hand Smoke Exposure: No Advance Directives: No Advance Directives Information Provided: Yes service: No Current occupational status: disabled Cognitive needs: No Hearing needs: No Vision needs: Yes Meds Allergies Allergy/AdvReac Type Severity Reaction Status Date / Time No Known Allergies Allergy Verified 07/06/23 10:50 Exam Airway Mallampati Class: II TM Dist: >3cm Neck ROM: Full Heart: rrr Lungs: cta Assessment and Plan Assessment Anesthesia Assessment: Anesthesia Plan Discussed Final Anesthetic Review NPO: Yes ASA Class: II Final Preanesthetic Review: No Changes in Pt Med Stat, Meds/Allgs Chart Reviewed and Consent Obtained/Reviewed Patient Risk: Intermediate Procedure Risk: Intermediate Anesthetic Plan Anesthetic Plan: MAC: Disposition: Standard PACU
--- NOTE | 2023-10-25 13:06 | MHC.SHP ---
Pre-Procedural Eval Section A Date of Service: 10/25/23 The patient is an INPATIENT: No The History & Physical has been completed within 30 days and I have reviewed it.: No Section B Chief Complaint: Epigastric pain, FU of duodenal ulcers Relevant Family History (Specify if Yes): No Relevant Social History: Tobacco Use (former smoker) Present Medications: see Short Stay Collaborative assessment Medical History: Significant History (Chest pain Dyslipidemia H. pylori infection Insomnia Physical exam Pulmonary nodule Right hand pain Right hip pain) History of Previous Operations: Relevant previous surgery/procedure and date(s) (History of EGD and colonoscopy) Allergies: Allergies Allergy/AdvReac Type Severity Reaction Status Date / Time No Known Allergies Allergy Verified 07/06/23 10:50 Review of Systems Sugical H&P ROS: Negative: Constitution, Cardiovascular, Respiratory and Gastrointestinal Exam Surgical H&P Exam: Normal: Heart, Normal: Lungs, Normal: Extremities and Normal: Abdomen Plan Diagnosis/Plan: Unchanged I have reviewed the history and physical and performed a pertinent physical examination on my patient. No changes have occurred unless specified. Time Spent With Patient Time: Total time managing care of this patient today ____ minutes.
[2023-10-25 13:17] VITALS: BP 134/75; PULSE 72; RESP 16; TEMP 36.6; O2SAT 98
--- NOTE | 2023-10-25 13:36 | P.OP_ITS ---
Operative Note Operative Note Date of Service: 10/25/23 Narrative: FLEXIBLE TRANSORAL UPPER GASTROINTESTINAL ENDOSCOPY WITH BIOPSIES Pre-op diagnosis: Epigastric pain, GERD, FU duodenal ulcers Post-op diagnosis: Hiatal hernia, gastritis, duodenitis Endoscopist:? Lilliam Altman MD Anesthesia:?MAC Consent: Indications for the procedure and potential complications of bleeding, perforation, reaction to medications and missed diagnosis were discussed with the patient and informed consent was obtained. Instrument: Olympus GIF H 190 mid size upper endoscope Monitoring: Vital signs and clinical assessment, continuous EKG monitoring, Pulse oximetry, Carbon Dioxide monitoring and blood pressure monitoring were done throughout the procedure. Procedure: The patient was placed in the left lateral decubitis position and pre-procedure medications were administered and a bite block was placed. The endoscope was inserted into the mouth and advanced under direct vision to the third part of duodenum. A careful inspection was made as the upper endoscope was withdrawn including a retroflexed examination of the proximal stomach; Findings and interventions are described below. Findings: Larynx: Normal Esophagus: GE junction at 38 cms , small hiatal hernia 38 - 40 cms. No esophagit is or Hoskins's. Stomach: Moderate diffuse gastric erythema with prominent gastric folds - biopsied. Biopsies were obtained from the antrum to check for H pylori. Grade 2 flap valve on retroflexed examination of the cardia. Duodenum: A few 2-3 mm erosions in the apex of the bulb. (ulcers seen on last EGD appeared to have healed).? Biopsies were obtained from 3rd part of the duodenal to check for celiac sprue Intervention: Biopsies as noted above Impression and Post Procedure Diagnosis: Endoscopy Findings: STOMACH: Moderate diffuse gastric erythema with prominent gastric folds - biopsied. Biopsies were obtained from the antrum to check for H pylori. DUODENUM: A few 2-3 mm erosions in the apex of the bulb. (ulcers seen on last EGD appeared to have healed).? Biopsies were obtained from 3rd part of the duodenal to check for celiac sprue Plan: Await pathology results Patient has an appointment on 11/09/23 in the GI Clinic with Gini Rodrigues NP. Above findings were reviewed with the patient and GERD handout was given in the discharge area Pt has a hx of pancreatic insufficiency in his problem list - advise further evaluation with fecal elastase and MRCP with MRI of pancreas to rule out pancreatic source of upper abdominal pain.
[2023-10-25] MEDS: Lactated Ringers 1,000 ML 100 ML IVCONT (13:43)
[2023-10-25 14:05] VITALS: BP 112/70; PULSE 78; RESP 16; TEMP 37; O2SAT 94
[2023-10-25 14:20] VITALS: BP 114/75; PULSE 68; RESP 14; O2SAT 98
[2023-10-25 14:35] VITALS: BP 117/75; PULSE 69; RESP 16; TEMP 36.2; O2SAT 99
== END 2023-10-25 15:10 | disposition home or self-care (01) ==
PROVIDERS: PCP Internal Medicine; Visit Provider Internal Medicine Gastroenterology
PROC: 0DJ08ZZ Inspection of Upper Intestinal Tract, Via Natural or Artificial Opening Endoscopic (ICD-10-PCS; CPT 43235; principal; 2023-10-25 14:10)
DX: K21.9 Gastro-esophageal reflux disease without esophagitis (principal); K29.50 Unspecified chronic gastritis without bleeding; K29.80 Duodenitis without bleeding; K44.9 Diaphragmatic hernia without obstruction or gangrene; Z87.11 Personal history of peptic ulcer disease; K86.89 Other specified diseases of pancreas; Z87.891 Personal history of nicotine dependence; E78.5 Hyperlipidemia, unspecified
CPT/HCPCS: 43239; 88305; 88342; J2704

== ENCOUNTER → 2023-10-25 12:45 | Outpatient (BNV) | payer OTHER, SELFPAY | PROVIDERS: PCP Internal Medicine; Visit Provider Internal Medicine Gastroenterology | DX: K29.90 Gastroduodenitis, unspecified, without bleeding (principal); K44.9 Diaphragmatic hernia without obstruction or gangrene | CPT/HCPCS: 43239 ==

== ENCOUNTER 2023-12-07 10:39 | Outpatient (REF) | payer OTHER, SELFPAY ==
--- NOTE | ~2023-12-07 | US_ITS ---
EXAMINATION: US ABDOMEN COMPLETE CLINICAL INFORMATION: Epigastric pain. COMPARISON: CT abdomen and pelvis 04/23/2021. Ultrasound abdomen 11/01/2019. TECHNIQUE: Real-time imaging of the abdominal viscera. Limited visualization due to bowel gas. FINDINGS: PANCREAS: Limited visualization of pancreatic tail and head. Imaged portion of pancreatic body is unremarkable. ABDOMINAL AORTA: Limited visualization. INFERIOR VENA CAVA: Visualized portions are normal. LIVER: Unremarkable in echogenicity. Limited visualization. GALLBLADDER: No gallstones. No gallbladder wall thickening. COMMON BILE DUCT: Normal in caliber measuring 0.3 cm in diameter. RIGHT KIDNEY: No hydronephrosis. No renal calculi. Limited visualization. 1.5 x 1.2 x 1.1 cm upper pole cyst. CT scan of 04/23/2021 demonstrated a right renal 1 cm upper pole cyst. There is no indication for follow-up imaging. The kidney measures 10.4 cm in maximum dimension. No hydronephrosis. No renal calculi. Limited visualization. LEFT KIDNEY: Medial midpole 0.[address] scan also demonstrated midpole cysts. There is no indication for follow-up imaging. No hydronephrosis. No renal calculi. Limited visualization. The kidney measures 12.6 cm in maximum dimension. SPLEEN: Normal. The spleen measures 9.1 cm in maximum dimension. FREE FLUID: None. US/US abdomen complete IMPRESSION: Bilateral renal cysts redemonstrated. There is no indication for follow-up imaging.
== END 2023-12-07 10:40 | disposition home or self-care (01) ==
LOC: HO.US 10:39
PROVIDERS: PCP Internal Medicine; Visit Provider Internal Medicine Gastroenterology
DX: R10.13 Epigastric pain (principal)
CPT/HCPCS: 76700

== ENCOUNTER 2023-12-24 14:52 | Outpatient (REF) | payer OTHER, SELFPAY ==
[2023-12-24 15:00] LABS: MANUAL DIFF FLAG NO
[2023-12-24 15:39] LABS: Basophils Percent Auto 0.5 % (0-2); Eosinophils Absolute Auto 0.3 X10*3/uL (0.0-0.4); Eosinophils Percent Auto 3.9 % (0-4); Hematocrit 45.3 % (42.0-52.0); Hemoglobin 14.8 g/dl (14.0-18.0); Imm Gran Abs Auto 0.03 X10*3/uL (0.00-0.03); Imm Gran Pct Auto 0.4 % (0.0-0.4); Lymphocytes Absolute Auto 3.2 X10*3/uL (1.2-4.9); Lymphocytes Percent Auto 37.7 % (20-40); Mean Corpuscular HGB Conc 32.7 g/dl (31.0-36.0); Mean Corpuscular Hemoglobin 29.4 pg (27.0-33.0); Mean Corpuscular Volume 89.9 fL (80.0-98.0); Mean Platelet Volume 8.8 fL (9.4-12.4); Monocytes Absolute Auto 0.7 X10*3/uL (0.1-1.2); Monocytes Percent Auto 7.9 % (2-11); Neutrophils Absolute Auto 4.2 x10*3/uL (2.0-8.3); Neutrophils Percent Auto 49.6 % (45-73); Platelet Count 333 X10*3/uL (160-400); Red Blood Count 5.04 X10*6/uL (4.60-5.80); Red Cell Distribution Width 14.6 % (11.0-16.0); White Blood Count 8.4 X10*3/uL (4.8-10.8)
[2023-12-24 16:02] LABS: Alanine Aminotransferase 47 U/L (0-40); Albumin Level 4.2 g/dL (3.5-5.0); Alkaline Phosphatase 113 U/L (39-117); Aspartate Amino Transferase 25 U/L (5-37); Bilirubin Direct 0.3 mg/dL (0.0-0.5); Bilirubin Total 1.1 mg/dL (0.0-1.0); Lipase 49 U/L (8-78); Total Protein 7.2 g/dL (6.5-8.0)
== END 2023-12-24 14:53 | disposition home or self-care (01) ==
LOC: HO.LAB 14:52
PROVIDERS: PCP Internal Medicine; Visit Provider Internal Medicine Gastroenterology
DX: R10.13 Epigastric pain (principal)
CPT/HCPCS: 36415; 80076; 83690; 85025

== ENCOUNTER 2024-01-13 11:27 | Outpatient (REF) | payer OTHER, SELFPAY ==
[2024-01-13 12:20] LABS: Alanine Aminotransferase 50 U/L (0-40); Albumin Level 4.5 g/dL (3.5-5.0); Alkaline Phosphatase 112 U/L (39-117); Anion Gap 12 (12-20); Aspartate Amino Transferase 27 U/L (5-37); Blood Urea Nitrogen 16 mg/dL (9-16); Calcium 10.2 mg/dL (8.4-10.2); Carbon Dioxide 29 mmol/L (22-29); Chloride 104 mmol/L (96-108); Cholesterol 163 mg/dL (<200); Estimated Glomerular Filt Rate > 60; Glucose Fasting 102 mg/dL (60-99); HDL Cholesterol 46 mg/dL (>40); LDL Cholesterol Calculated 91 mg/dL (<100); Sodium 140 mmol/L (135-145); Total Protein 7.5 g/dL (6.5-8.0); Triglycerides 133 mg/dL (<150)
[2024-01-13 12:36] LABS: PSA,Total (Free>4and<10) 1.49 ng/mL (0.00-4.00)
== END 2024-01-13 11:28 | disposition home or self-care (01) ==
LOC: HO.LAB 11:27
PROVIDERS: Visit Provider Internal Medicine
DX: E78.5 Hyperlipidemia, unspecified (principal); E55.9 Vitamin D deficiency, unspecified; K26.9 Duodenal ulcer, unspecified as acute or chronic, without hemorrhage or perforation; K21.9 Gastro-esophageal reflux disease without esophagitis; K59.04 Chronic idiopathic constipation; Z12.5 Encounter for screening for malignant neoplasm of prostate
CPT/HCPCS: 36415; 80053; 80061; 82306; 84153

== ENCOUNTER 2024-01-24 08:17 | Outpatient (AMB) | payer OTHER, SELFPAY ==
--- NOTE | 2024-01-24 08:19 | A.OFFPC_ITS ---
Vital Signs 01/24/24 08:21 Height 5 ft 8 in Weight 195 lb BMI 29.6 BP 122/80 Blood Pressure Location Lt brachial Position Sitting Intake Visit Reasons: PE Intake Note: Patient here for a physical exam Apron Trimmer Required: No Accompanied by: Self / Same As Patient Allergies No Known Allergies Allergy (Verified 01/24/24 08:30) Medication List - Last Reconciled 01/24/24 by Rajani Villalta MD atorvastatin 80 mg PO DAILY 90 days cholecalciferol (vitamin D3) 25 mcg PO DAILY 90 days ezetimibe 10 mg PO DAILY 90 days famotidine (Pepcid) 40 mg PO BEDTIME lansoprazole 30 mg PO BID plecanatide (Trulance) 3 mg PO DAILY trazodone 50 mg PO BEDTIME PRN 90 days Tobacco use date assessed: 01/24/24 Dental Screening Dental Screen Date: 01/24/24 Did you have a dental visit in the last 12 months?: Yes Did you have a dental problem in the last 6 months where you did not have access to dental care?: No Was dental information given to patient?: Patient has dentist HPI HPI Comments History of Present Illness Details This is a 58-year-old male that comes for his physical exam. Colonoscopy was less than 5 years ago at [facility] and was normal as per patient. Labs and ultrasound of the abdomen were discussed. No chest pain or shortness of breath. Compliant with medications. Has insomnia and gabapentin works better than trazodone. Also has constipation and MiraLax has been working for him. [facility] Medical History Physical exam Chest pain Pulmonary nodule Right hand pain Total bilirubin, elevated Insomnia Right hip pain Dyslipidemia H. pylori infection Surgical History History of esophagogastroduodenoscopy (EGD) Hx of colonoscopy Family History Father No problems noted. Mother Hypercholesteremia Heart problem Diabetes Social History Household Members: Family Housing: Apartment Alcohol intake: former Patient Tobacco Use Status: Former Tobacco user Tobacco use type: Cigarette e-Cigarette/Vaping Use: Never Used Second Hand Smoke Exposure: No service: No Current occupational status: disabled Cognitive needs: No Hearing needs: No Vision needs: Yes Questionnaire PHQ-9 Over the last 2 weeks, how often have you been bothered by any of the following problems? 1. Little interest or pleasure in doing things: not at all 2. Feeling down, depressed, or hopeless: several days 3. Trouble falling or staying asleep, or sleeping too much: not at all 4. Feeling tired or having little energy: not at all 5. Poor appetite or overeating: not at all 6. Feeling bad about yourself - or that you are a failure or have let yourself or your family down: not at all 7. Trouble concentrating on things, such as reading the newspaper or watching television: not at all 8. Moving or speaking so slowly that other people could have noticed. Or the opposite - being so fidgety or restless that you have been moving around a lot more than usual: not at all 9. Thoughts that you would be better off or of hurting yourself in some way: not at all Total score: 1 Depression Screening Interpretation: Negative Depression Screening Done: Yes 58013 - PHQ-9 Billing: Yes Source: Developed by Drs. Abbe Mata, Adeline Betancourt, Rebel Kong and colleagues, with an educational maribel from [employer]. Thrive Questionnaire Date Thrive assessed: 01/24/24 I am a: Patient What is your living situation today?: I have a steady place to live Within the past 12 months, did the food you bought not last and you didn't have the money to get more?: Never true Within the past 12 months, did you worry whether your food would run out before you got money to buy more?: Never true Do you have trouble paying for medicines?: No Do you have trouble getting transportation to medical appointments?: No Do you have trouble paying your heating and electricity bill?: No Do you have trouble taking care of your child, family member or friend?: No Do you have trouble with day-to-day activities such as bathing, preparing meals, shopping, managing finances, etc.?: No Are you currently unemployed and looking for a job?: No Are you interested in more education?: No Please select the resources that you would like help with: None Currently or been in a relationship where the following occur: no concerns reported THRIVE Score: 0 AUDIT C Alcohol Use Questionnaire (AUDIT-C) 1. How often do you have a drink containing alcohol?: Never Total Score: 0 Score Reviewed/Action Taken: No MARU-7 AMB Questionnaire MARU-7 Date MARU - 7 assessed: 01/24/24 Feeling nervous, anxious, or on edge: 0 = Not at all Not being able to stop or control worryin = Not at all Worrying too much about different things: 0 = Not at all Trouble relaxin = Not at all Being so restless that it is hard to sit still: 0 = Not at all Becoming easily annoyed or irritable: 0 = Not at all Feeling afraid as if something awful might happen: 0 = Not at all Total MARU-7 score (0-4 normal; 5-9 mild; 10-14 moderate; 15-21 severe): 0 Source: Developed by Drs. Abbe Mata, Adeline Betancourt, Rebel Kong and colleagues, with an educational maribel from [employer]. MARU-7 Assessment Billing MARU-7 Assessment Tool: MARU-7 Assessment 86222 Review of Systems Const All systems reviewed & are unremarkable except as noted in HPI and below Eyes Reports no additional complaints, Denies change in vision and Denies other visual disturbances Card Denies chest pain at rest, Denies chest pain with activity, Denies edema, Denies irregular heart rhythm, Denies claudication, Denies dyspnea, Denies dyspnea on exertion, Denies orthopnea, Denies paroxysmal nocturnal dyspnea and Denies slow heart rate Resp Denies cough, Denies dyspnea and Denies dyspnea on exertion GI Denies abdominal pain, Denies change in bowel habits, Denies excessive flatus, Denies nausea and Denies vomiting Denies urinary hesitancy, Denies urinary incontinence and Denies urinary urgency Musc Denies abnormal gait, Denies atrophy, Denies deformity and Denies limited range of motion Skin/Breast Denies bleeding lesions, Denies changing lesions and Denies rash Neuro Denies abnormal gait, Denies behavioral changes, Denies confusion and Denies lack of coordination Psych Denies behavioral changes and Denies confusion Physical exam (Primary Care) Vital Signs: Last Vital Signs BP 122/80 01/24/24 08:21 BMI result Body Mass Index 29.6 Tobacco/Smoking Status: Tobacco use Status Tobacco use date assessed 01/24/24 01/24/24 08:25 Patient Tobacco Use Status Former Tobacco user 01/24/24 08:25 Tobacco use type Cigarette 01/24/24 08:25 e-Cigarette/Vaping Use Never Used 01/24/24 08:25 PHQ-9: PHQ-9 Score PHQ-9: Total score 1 01/24/24 08:25 Depression Screening Interpretation: Negative Thrive Assessment: Date of Thrive Assessment Date Thrive assessed 01/24/24 01/24/24 08:25 Currently or been in a relationship where the following occur: no concerns reported Const General: No confusion Orientation/consciousness: patient oriented x3 and No confusion HENMT Head: Yes normal to inspection, Yes normocephalic and Yes atraumatic Ears: external ears normal Eyes General: appearance normal, both eyes and all related structures Eyelids: Yes eyelids normal Conjunctivae: conjunctivae normal Neck Neck: Yes normal visual inspection and Yes supple Resp Effort & Inspection: normal respiratory effort Auscultation: clear to auscultation bilaterally Cardio Jugular venous distension: no JVD Rate: regular rate Rhythm: regular rhythm Heart sounds: S1 normal heart sound present and S2 normal heart sound present GI Inspection: Yes normal to inspection Palpation (GI): Soft to palpation and nontender Auscultation: normal bowel sounds Skin General skin exam: no rashes or lesions noted Neuro General: patient oriented x3, no focal motor deficits and No confusion Extrem General: Yes full ROM Psych Appearance: grossly normal Assessment and Plan Assessment & Plan (1) Physical exam: Code(s): Z00.00 - Encounter for general adult medical examination without abnormal findings Plan: * Repeat in a year. Medications: New polyethylene glycol 3350 (Miralax) 17 grams PO DAILY 30 days PRN 30 ea 4RF constipation gabapentin 100 mg PO BEDTIME 30 days 30 caps 2RF Discontinued trazodone Discontinued Reason: Patient Completed Course 50 mg PO BEDTIME 90 days PRN 90 tabs 1RF sleep Coding Level of Care Code Est Pt Prev Care 40-64y(22378) Diagnoses Physical exam Z00.00 Additional Codes MARU-7 Assessment Billing - MARU-7 Assessment Tool: MARU-7 Assessment 44744 ([id number]) Time Spent (min) 31
[2024-01-24 08:21] VITALS: BP 122/80; BMI 29.6
== END 2024-01-24 08:41 | disposition home or self-care (01) ==
PROVIDERS: Visit Provider Internal Medicine
DX: Z00.00 Encounter for general adult medical examination without abnormal findings (principal)
CPT/HCPCS: 99396

== ENCOUNTER 2024-09-06 10:52 | Outpatient (AMB) | payer OTHER, SELFPAY ==
[2024-09-06 10:58] VITALS: BP 110/72; BMI 28.9
--- NOTE | 2024-09-06 10:58 | A.OFFPC_ITS ---
Vital Signs 09/06/24 10:58 Height 5 ft 8 in Weight 190 lb BMI 28.9 BP 110/72 Blood Pressure Location Lt brachial Position Sitting Intake Visit Reasons: follow up Intake Note: Patient here for a follow up Manager Infrastructure Required: No Accompanied by: Self / Same As Patient Allergies No Known Allergies Allergy (Verified 09/06/24 11:16) Medication List - Last Reconciled 09/06/24 by Rajani Villalta MD atorvastatin 80 mg PO DAILY 90 days cholecalciferol (vitamin D3) 25 mcg PO DAILY 90 days famotidine (Pepcid) 40 mg PO BEDTIME gabapentin 100 mg PO BEDTIME 30 days lansoprazole 30 mg PO BID plecanatide (Trulance) 3 mg PO DAILY polyethylene glycol 3350 (Miralax) 17 grams PO DAILY PRN 30 days Tobacco use date assessed: 01/24/24 Dental Screening Dental Screen Date: 01/24/24 HPI HPI Comments History of Present Illness Details This is a 58-year-old male with GERD, chronic constipation and dyslipidemia that complains of neck pain that has been present for few months. He has full active range of motion and denies any previous trauma. GERD still present with PPIs and he would like a 2nd opinion at [facility]. Constipation well controlled with MiraLax. He also feels bloated. He does have dyslipidemia and lipid panel was ordered. No chest pain or shortness on breath. He also complains of insomnia and was having trazodone in the past. [facility] Medical History (Updated 09/06/24 @ 11:23 by Rajani Villalta MD) Physical exam Chest pain Pulmonary nodule Right hand pain Total bilirubin, elevated Insomnia Right hip pain Dyslipidemia H. pylori infection Surgical History History of esophagogastroduodenoscopy (EGD) Hx of colonoscopy Family History Father No problems noted. Mother Hypercholesteremia Heart problem Diabetes Social History Household Members: Family Housing: Apartment Alcohol intake: former Patient Tobacco Use Status: Former Tobacco user Tobacco use type: Cigarette e-Cigarette/Vaping Use: Never Used Second Hand Smoke Exposure: No service: No Current occupational status: disabled Cognitive needs: No Hearing needs: No Vision needs: Yes Questionnaire Thrive Questionnaire Date Thrive assessed: 01/24/24 MARU-7 AMB Questionnaire MARU-7 Date MARU - 7 assessed: 01/24/24 Source: Developed by Drs. Abbe Mata, Adeline Betancourt, Rebel Kong and colleagues, with an educational maribel from [employer]. Review of Systems Const All systems reviewed & are unremarkable except as noted in HPI and below Card Denies chest pain at rest, Denies chest pain with activity, Denies edema, Denies irregular heart rhythm, Denies claudication, Denies dyspnea, Denies dyspnea on exertion, Denies orthopnea, Denies paroxysmal nocturnal dyspnea and Denies slow heart rate Resp Denies cough, Denies dyspnea and Denies dyspnea on exertion GI Denies abdominal pain, Denies change in bowel habits, Denies excessive flatus, Denies nausea and Denies vomiting Physical exam (Primary Care) Vital Signs: Last Vital Signs BP 110/72 09/06/24 10:58 BMI result Body Mass Index 28.9 Tobacco/Smoking Status: Tobacco use Status Tobacco use date assessed 01/24/24 09/06/24 11:02 Patient Tobacco Use Status Former Tobacco user 09/06/24 11:02 Tobacco use type Cigarette 09/06/24 11:02 e-Cigarette/Vaping Use Never Used 09/06/24 11:02 Thrive Assessment: Date of Thrive Assessment Date Thrive assessed 01/24/24 09/06/24 11:02 Neck Neck: Yes normal visual inspection and Yes supple Resp Effort & Inspection: normal respiratory effort Auscultation: clear to auscultation bilaterally Cardio Jugular venous distension: no JVD Rate: regular rate Rhythm: regular rhythm Heart sounds: S1 normal heart sound present and S2 normal heart sound present Extrem General: Yes full ROM Office Procedures Flu Questionnaire Does the patient have a severe egg allergy?: No Immunizations Fluarix Triv [id number] (PF) 45 mcg (15 mcg x 3)/0.5 mL IM syringe Performing Provider: Rajani Villalta MD [facility] Documented (not given) by: JOELLE Conley on 09/06/24 11:02 Reason Not Given: Patient Refused Coding Level of Care Code Est Pt Level 4 (92882) Complex EM visit Add On G2211 Diagnoses Neck pain M54.2 Dyslipidemia E78.5 GERD (gastroesophageal reflux disease) K21.9 Chronic idiopathic constipation K59.04 Insomnia G47.00 Time Spent (min) 23 Assessment & Plan Assessment & Plan (1) Neck pain: Code(s): M54.2 - Cervicalgia Category: Medical Plan: X-ray ordered. Start physical therapy. (2) Dyslipidemia: Code(s): E78.5 - Hyperlipidemia, unspecified Category: Medical Plan: Continue statins. Repeat lipid panel. (3) GERD (gastroesophageal reflux disease): Code(s): K21.9 - Gastro-esophageal reflux disease without esophagitis Category: Medical Plan: Continue PPIs. Referred to [facility] for 2nd opinion. (4) Chronic idiopathic constipation: Code(s): K59.04 - Chronic idiopathic constipation Category: Medical Plan: Continue MiraLax as needed. (5) Insomnia: Code(s): G47.00 - Insomnia, unspecified Category: Medical Plan: Restart trazodone. Orders: Orders Comprehensive [place]. Panel Fast Today K59.04 - Chronic idiopathic constipation PSA,Total (Free>4and<10) Today R35.1 - Nocturia XR cervical spine 2V Today M54.2 - Cervicalgia Influenza [id number] Immunization Today Z23 - Encounter for immunization Lipid Panel Today E78.5 - Hyperlipidemia, unspecified PT Evaluation and Treatment Today M54.2 - Cervicalgia Referrals Gastroenterology Referral K21.9 - Gastro-esophageal reflux disease without esophagitis Medications: New trazodone 50 mg PO BEDTIME PRN 90 tabs 0RF sleep 90 days
== END 2024-09-06 11:28 | disposition home or self-care (01) ==
PROVIDERS: PCP Internal Medicine; Visit Provider Internal Medicine
DX: M54.2 Cervicalgia (principal); E78.5 Hyperlipidemia, unspecified; K21.9 Gastro-esophageal reflux disease without esophagitis; K59.04 Chronic idiopathic constipation; G47.00 Insomnia, unspecified; Z23 Encounter for immunization

== ENCOUNTER → 2024-09-06 10:52 | Outpatient (BNVA) | payer OTHER, SELFPAY | PROVIDERS: PCP Internal Medicine; Visit Provider Internal Medicine | DX: M54.2 Cervicalgia (principal); E78.5 Hyperlipidemia, unspecified; K21.9 Gastro-esophageal reflux disease without esophagitis; K59.04 Chronic idiopathic constipation; G47.00 Insomnia, unspecified | CPT/HCPCS: 90471; 99212 ==

== ENCOUNTER 2024-10-30 09:00 | Outpatient (RCR) | payer OTHER, SELFPAY ==
--- NOTE | 2024-10-02 13:06 | MHC.PT.EP ---
[facility] [place] [facility] [place] [facility] [address] [phone] F: [phone] F: [phone] F: [phone] F: [phone] Physical Therapy Plan of Care Date of Evaluation: 10/02/24 Date of Surgery: Diagnosis: cervicalgia Assessment: Patient is a 58 year old R handed male who presents with s/s consistent with cervicalgia, neck pain. He does not work and is disabled. He is mostly sedentary during the day, watching a large quantity of television. Patient past medical history includes R LASHAY. Current impairments include pain, posture, ROM, strength, activity tolerance and functional mobility. Functional limitations include decreased ability to sleep, lift, push, pull, lift, carry. Patient is motivated with good rehab potential. Skilled PT will address impairments and functional limitations in order to achieve goals. Frequency and Duration: The patient will be seen 2x/week for 5 weeks Short Term Goals: I with HEP - 2 weeks AROM rotation 60 b/l pain free - 3 weeks Pain free sleeping - 3 weeks TTP absent - 3 weeks Cattle Dipper Goals: Max pain with ADLs 2/10 - 5 weeks NPDI 10% or less - 5 weeks AROM rotation 68 and pain free b/l - 5 weeks Treatment Plan: Modalities to reduce pain, spasms and effusion. Manual therapy to restore motion and function. Therapeutic exercise to improve strength and flexibility. Neuromuscular re-education for posture and balance. Therapeutic activities to return to functional activities of daily living. Electronically signed by: Nnamdi Bella, PT Please sign and return to therapist. Thank you for your referral.
--- NOTE | 2025-02-16 12:33 | MHC.PT.DC ---
[facility] [place] Office [place] Office [place] Office [address] [place] [address] [phone] F: [phone] F: [phone] F: [phone] F: [phone] Physical Therapy Discharge Report Diagnosis: cervicalgia Date of Surgery: Date of Evaluation: 10/02/24 Date of Discharge: 11/08/24 Treatments to Date: 8 Cancellations to Date: No Shows to Date: Discharge Status: Achieved Goals Improved Function Independent with HEP Discharge Summary: 10/30/24: I with HEP. goals met or progressed towards. s/s absent with most activities, 1/10 at worst. pt is happy with progress and ready to continue exclusively with HEP. we will d/c to HEP at this time. 10/25/24: pt progressing well overall. ROM improvement noticeable. we will plan to d/c to HEP NV. 10/18; Pt has increased L c/s rotation and less c/o pain with L c/s. 10/16/24: pain free at end of treatment today. we will continue to progress posture and transition to HEP as indicated. 10/11; Pt L c/s rot limited by pain. Pt performed exs without increased sxs. Relief after manual RX. 10/09/24: pt progressing well. responding well. no adverse reactions to above program. reduced L sided tissue tension . 10/06/24: pt progressing well overall. reduced tissue tension and pain today. added postural intervention. continue to progress as tolerated. Patient is a 58 year old R handed male who presents with s/s consistent with cervicalgia, neck pain. He does not work and is disabled. He is mostly sedentary during the day, watching a large quantity of television. Patient past medical history includes R LASHAY. Current impairments include pain, posture, ROM, strength, activity tolerance and functional mobility. Functional limitations include decreased ability to sleep, lift, push, pull, lift, carry. Patient is motivated with good rehab potential. Skilled PT will address impairments and functional limitations in order to achieve goals. Electronically signed by: Nnamdi Bella, PT Please sign and return to therapist. Thank you for your referral.
== END 2025-02-16 12:34 | disposition home or self-care (01) ==
LOC: HO.PTCHIC 09:00
PROVIDERS: PCP Internal Medicine; Visit Provider Internal Medicine
DX: M54.2 Cervicalgia (principal)
CPT/HCPCS: 97110; 97140; 97162

== ENCOUNTER 2025-01-05 09:37 | Outpatient (REF) | payer OTHER, SELFPAY ==
--- OUTSIDE RECORDS SUMMARY | 2025-01-05 10:19 | XMS_ITS ---
Author Organization [facility] Address [address] [place] [address] Care Team Providers Care Lorry Weigher Name Role Phone Rajani Rg Primary Care Provider Unavailab Roly Fuchs Jr Unavailable ALLERGIES No Known Allergies REASON FOR VISIT Patient presents today for epigastric pain MEDICATIONS Medication SIG (Take, Route, Frequency, Duration) Notes Start Date End Date Status D3-1000 25 MCG (1000 UT) TAKE 1 CAPSULE BY MOUTH EVERY DAY Oral for 90 Active Atorvastatin Calcium 80 MG Oral for 90 Active Ezetimibe 10 MG Oral for 90 Ac tive traZODone HCl 50 MG TAKE 1 TABLET BY JOSE TH AT BEDTIME NEEDED FOR SLEEP Oral for 90 Active Esomeprazole Magnesium 40 MG 1 capsule Orally Once a day for 30 day(s) 06/08/2024 Active Trulance 3 MG Oral for 30 Acti ve SOCIAL HISTORY Tobacco Use: Social History Observation Description Date Details (start date - stop date) Never Smoker NA - NA Sex Assigned At : Social History Observation Description Sex Assigned At Unknown Tobacco Use/Smoking Question Answer Notes Patient is a nonsmoker Alcohol Screen Question Answer Notes Did you have a drink containing alcohol in the p ast year? No Points 0 Interpretation Negative VITAL SIGNS BMI 27.17 kg/m2 06/08/2024 Blood pressure systolic 00 mm Hg 06/08/20 24 Blood pressure diastolic 00 mm Hg 024 Height 5 ft 9 in in 06/08/2024 Weight 184 lbs 06/08/2024 Encounters Encounter Location Date Provider Diagnosis [facility] [address] [place] [address] 06/08/2024 Roly Islas Jr Epigastric pain R10.13 ASSESSMENTS Encounter Date Diagnosis Assessment Notes Treatment Notes Treatment Clinical Notes 06/08/2024 Epigastric pain (ICD-10 - R10.13) Gastroesophageal reflux disease material was printed PLAN OF TREATMENT Medication Medication Name Sig Start Date Stop Date Notes Esomeprazole Magnesium 40 MG 1 capsule O rally Once a day for 30 day(s) 06/08/2024 Treatment Notes Assessment Notes Epigastric pain Gastroesophageal ref lux disease material was printed Next Appt Details Follow Up: 1 Year, Reason: Provider Name:Roly wolf Jr, 06/06/2025 11:10:00 AM, [address] [place] [address], [address], [place], [phone],
--- OUTSIDE RECORDS SUMMARY | 2025-01-05 10:19 | XMS_ITS ---
Author Organization [facility] Address [address] [place] [address] Care Team Providers Care Sales Intern Name Role Phone Rajani Rg Primary Care Provider Unavailab Roly Fuchs Jr REASON FOR VISIT relux,abdominal bloating Encounters Encounter Location Date Provider Diagnosis [facility] Outpatient [address] [place], [place] [id number] 10/13/2024 Roly Islas Jr PLAN OF TREATMENT Next Appt Details Provider Name:Roly wolf Jr, 06/06/2025 11:10:00 AM, [address], [address], [place], [address],
--- OUTSIDE RECORDS SUMMARY | 2025-01-05 10:19 | XMS_ITS | Patient Health Record ---
Author Organization [facility] Address [address] [place] [address] Care Team Providers Care Mixer Pigment Name Role Phone Rajani Rg Primary Care Provider UnavailRoly Buck Jr Unavailable ALLERGIES No Known Allergies REASON FOR REFERRAL No Information MEDICATIONS Medication SIG (Take, Route, Frequency, Duration) Notes Start Date End Date Status Esomeprazole Magnesium 40 MG 1 capsule Orally Once a day for 30 day(s) 06/08/2024 Active Trulance 3 MG Oral for 30 Acti ve D3-1000 25 MCG (1000 UT) TAKE 1 CAPSULE BY MOUTH EVERY DAY Oral for 90 Active Atorvastatin Calcium 80 MG Oral for 90 Active Ezetimibe 10 MG Oral for 90 Ac tive traZODone HCl 50 MG TAKE 1 TABLET BY JOSE TH AT BEDTIME NEEDED FOR SLEEP Oral for 90 Active SOCIAL HISTORY Tobacco Use: Social History Observation Description Date Details (start date - stop date) Never Smoker NA - NA Sex Assigned At : Social History Observation Description Sex Assigned At Unknown Tobacco Use/Smoking Question Answer Notes Patient is a nonsmoker Alcohol Screen Question Answer Notes Did you have a drink containing alcohol in the p ast year? No Points 0 Interpretation Negative PROBLEMS Problem Type ICD Code Onset Dates Problem Status W/U Status Risk SNOMED Code Notes Problem Epigastric pain (R10.13) Active confirmed [id number] VITAL SIGNS Blood pressure diastolic 00 mm Hg 06/08/2024 Height 5 ft 9 in in 06/08/2024 Blood pressure systolic 00 mm Hg 06/08/2024 Weight 184 lbs 06/08/2024 BMI 27.17 kg/m2 06/08/2024 Encounters Encounter Location Date Provider Diagnosis [facility] [address] [place] [address] 05/08/2024 Roly Islas Jr [facility] [address] [place] [address] 06/08/2024 Roly Islas Jr Epigastric pain R10.13 [facility] Outpatient [address] [place], [place] [phone] 10/13/2024 Roly Islas Jr [facility] [address] [facility] [address] [place] [phone] 02/16/2024 Roly Islas Jr [facility] [address] [address] [place] [address] 10/13/2024 Roly Islas Jr ASSESSMENTS Encounter Date Diagnosis Assessment Notes Treatment Notes Treatment Clinical Notes 06/08/2024 Epigastric pain (ICD-10 - R10.13) Gastroesophageal reflux disease material was printed PLAN OF TREATMENT Pending Test Test Name Order Date LIVER PROFILE 11/04/2023 LIPASE 11/04/2023 CBC w/o DIFF 11/04/2023 US ABD 11/04/2023 Next Appt Details Provider Name:Roly Tayla wolf Jr, 06/06/2025 11:10:00 AM, [address] [facility], [address] [facility], [place], [address], Insurance Providers Payer Name Payer Address Payer Phone Subscriber Number Group Number Insured Name Patient Relationship to Insured Coverage Start Date Coverage End Date [employer] [facility] [address] Attn Claims GENNY Baer [id number] SUZANNE BRANCH Self - patient is the insured MEDICA[employer] OF [employer] [address] [place] [address] [id number] SUZANNE BRANCH Self - patient is the insured MEDICAL (GENERAL) HISTORY Medical History History ICD Code Peptic ulcer disease, EGD , small hiatal hernia, erythema and erosions in the duodenal bulb with healed ulcerations in gastric erythema with prominent folds. No H. pylori on biopsy. Gastroesophageal reflux disease Pulmonary nodule Hyperlipidemia Elevated over function tests Low vitamin D Colonoscopy 10/16, normal, t en-year followup (Dr. Conteh [facility]) Surgical History Surgery Date(Month/Year) hip replacement
--- OUTSIDE RECORDS SUMMARY | 2025-01-05 10:19 | XMS_ITS ---
Author Organization [facility] Address [address] [place] [address] Care Team Providers Care Correction Officer Supervisor Name Role Phone Rajani Rg Primary Care Provider Unavailab Roly Fuchs Jr [phone] REASON FOR VISIT Pt no show Encounters Encounter Location Date Provider Diagnosis [facility] [address] [place] [address] 10/13/2024 Roly Islas Jr PLAN OF TREATMENT Next Appt Details Provider Name:Roly wolf Jr, 06/06/2025 11:10:00 AM, [address] [facility], [address], [place], [address],
[2025-01-05 11:46] LABS: Alanine Aminotransferase 50 U/L (0-40); Albumin Level 4.4 g/dL (3.5-5.0); Alkaline Phosphatase 116 U/L (39-117); Anion Gap 7 (12-20); Aspartate Amino Transferase 28 U/L (5-37); Blood Urea Nitrogen 15 mg/dL (9-16); Calcium 9.7 mg/dL (8.4-10.2); Carbon Dioxide 29 mmol/L (22-29); Chloride 106 mmol/L (96-108); Cholesterol 242 mg/dL (<200); Estimated Glomerular Filt Rate > 60; Glucose Fasting 100 mg/dL (60-99); HDL Cholesterol 46 mg/dL (>40); LDL Cholesterol Calculated 145 mg/dL (<100); Potassium 4.2 mmol/L (3.3-5.1); Sodium 138 mmol/L (135-145); Total Protein 7.7 g/dL (6.5-8.0); Triglycerides 259 mg/dL (<150); Vitamin D 25-OH Total 41.7 ng/mL (>30)
[2025-01-05 11:50] LABS: PSA,Total (Free>4and<10) 1.84 ng/mL (0.00-4.00)
== END 2025-01-05 09:38 | disposition home or self-care (01) ==
LOC: HO.LAB 09:37
PROVIDERS: PCP Internal Medicine; Visit Provider Internal Medicine
DX: E55.9 Vitamin D deficiency, unspecified (principal); K59.04 Chronic idiopathic constipation; E78.5 Hyperlipidemia, unspecified; R35.1 Nocturia; Z12.5 Encounter for screening for malignant neoplasm of prostate
CPT/HCPCS: 36415; 80053; 80061; 82306; 84153

== ENCOUNTER 2025-01-25 09:25 | Outpatient (AMB) | payer OTHER, SELFPAY ==
[2025-01-25 09:31] VITALS: BP 122/84; PULSE 51; O2SAT 96; BMI 29.5
--- NOTE | 2025-01-25 09:31 | MHC.PC.OV ---
Vital Signs 01/25/25 09:31 Height 5 ft 8 in Weight 194 lb 4 oz BMI 29.5 BP 122/84 Blood Pressure Location Lt brachial Position Sitting Pulse 51 Pulse Source Pulse Oximeter Pulse Oximetry (%) 96 Oxygen Delivery Method Room Air Intake Visit Reasons: Annual Exam Forensic Science Examiner Required: Yes Forensic Science Examiner Language: French Binding Folder Name: Rajani Villalta MD Information Interpreted: non-clinical & clinical Accompanied by: Self / Same As Patient Allergies No Known Allergies Allergy (Verified 01/25/25 09:46) Medication List - Last Reconciled 01/25/25 by Rajani Villalta MD atorvastatin 80 mg PO DAILY 90 days cholecalciferol (vitamin D3) 25 mcg PO DAILY 90 days famotidine (Pepcid) 40 mg PO BEDTIME gabapentin 100 mg PO BEDTIME 30 days lansoprazole 30 mg PO BID plecanatide (Trulance) 3 mg PO DAILY polyethylene glycol 3350 (Miralax) 17 grams PO DAILY PRN 30 days trazodone 50 mg PO BEDTIME PRN 90 days Tobacco use date assessed: 01/25/25 Dental Screening Dental Screen Date: 01/25/25 Did you have a dental visit in the last 12 months?: No Did you have a dental problem in the last 6 months where you did not have access to dental care?: No Was dental information given to patient?: No HPI HPI Comments History of Present Illness Details The patient is a 59-year-old male presenting with the need for an annual physical examination and lab results review, with particular concern about his lipid profile. His cholesterol has risen substantially from 163 mg/dL to 242 mg/dL, indicating the progression of hyperlipidemia. Treatment has included atorvastatin, and plans to add fenofibrate were discussed due to elevated triglyceride levels. The patient also has a history of gastric ulcer, which he associates with occasional breathing difficulty. He has been advised to continue regular follow-up with gastroenterology, with planned endoscopy for further management. Depression is noted but is described as mild, with gabapentin aiding sleep and alleviating back pain. Constipation is managed with MiraLAX. - Tetanus immunization discussed and planned for administration. - Previous endoscopy performed; a follow-up endoscopy is scheduled. - Ongoing monitoring and management of hyperlipidemia involving atorvastatin and adding fenofibrate. - Encouragement to maintain healthy dietary habits and reduce cardiovascular risk. FOR[facility]LY [facility], [facility] Medical History Physical exam Chest pain Pulmonary nodule Right hand pain Total bilirubin, elevated Insomnia Right hip pain Dyslipidemia H. pylori infection Surgical History History of esophagogastroduodenoscopy (EGD) Hx of colonoscopy Family History Father No problems noted. Mother Hypercholesteremia Heart problem Diabetes Social History Household Members: Family Housing: Apartment Alcohol intake: former Patient Tobacco Use Status: Former Tobacco user Tobacco use type: Cigarette e-Cigarette/Vaping Use: Never Used Second Hand Smoke Exposure: No service: No Current occupational status: disabled Cognitive needs: No Hearing needs: No Vision needs: Yes Questionnaire PHQ-9 Over the last 2 weeks, how often have you been bothered by any of the following problems? 1. Little interest or pleasure in doing things: not at all 2. Feeling down, depressed, or hopeless: several days 3. Trouble falling or staying asleep, or sleeping too much: not at all 4. Feeling tired or having little energy: not at all 5. Poor appetite or overeating: not at all 6. Feeling bad about yourself - or that you are a failure or have let yourself or your family down: not at all 7. Trouble concentrating on things, such as reading the newspaper or watching television: not at all 8. Moving or speaking so slowly that other people could have noticed. Or the opposite - being so fidgety or restless that you have been moving around a lot more than usual: not at all 9. Thoughts that you would be better off or of hurting yourself in some way: not at all Total score: 1 Depression Screening Interpretation: Positive Depression Screening Follow-up: Existing condition and Follow-up Visit Requested Depression Screening Done: Yes 41468 - PHQ-9 Billing: Yes Source: Developed by Drs. Abbe Mata, Adeline Betancourt, Rebel Kong and colleagues, with an educational maribel from [employer]. Thrive Questionnaire Date Thrive assessed: 01/25/25 I am a: Patient What is your living situation today?: I have a steady place to live Within the past 12 months, did the food you bought not last and you didn't have the money to get more?: Never true Within the past 12 months, did you worry whether your food would run out before you got money to buy more?: Never true Do you have trouble paying for medicines?: No Do you have trouble getting transportation to medical appointments?: No Do you have trouble paying your heating and electricity bill?: No Do you have trouble taking care of your child, family member or friend?: No Do you have trouble with day-to-day activities such as bathing, preparing meals, shopping, managing finances, etc.?: No Are you currently unemployed and looking for a job?: No Are you interested in more education?: No Please select the resources that you would like help with: None Currently or been in a relationship where the following occur: No concerns reported THRIVE Score: 0 AUDIT C Alcohol Use Questionnaire (AUDIT-C) 1. How often do you have a drink containing alcohol?: Never 3. How often do you have six or more drinks on one occasion?: Never Total Score: 0 Score Reviewed/Action Taken: No MARU-7 AMB Questionnaire MARU-7 Date MARU - 7 assessed: 01/25/25 Feeling nervous, anxious, or on edge: 0 = Not at all Not being able to stop or control worryin = Not at all Worrying too much about different things: 0 = Not at all Trouble relaxin = Not at all Being so restless that it is hard to sit still: 0 = Not at all Becoming easily annoyed or irritable: 0 = Not at all Feeling afraid as if something awful might happen: 0 = Not at all Total MARU-7 score (0-4 normal; 5-9 mild; 10-14 moderate; 15-21 severe): 0 Source: Developed by Drs. Abbe Mata, Adeline Betancourt, Rebel Kong and colleagues, with an educational maribel from [employer]. MARU-7 Assessment Billing MARU-7 Assessment Tool: MARU-7 Assessment 19410 Review of Systems Const All systems reviewed & are unremarkable except as noted in HPI and below Card Denies chest pain at rest, Denies chest pain with activity, Denies edema, Denies irregular heart rhythm, Denies claudication, Denies dyspnea, Denies dyspnea on exertion, Denies orthopnea, Denies paroxysmal nocturnal dyspnea and Denies slow heart rate Resp Denies cough, Denies dyspnea and Denies dyspnea on exertion GI Denies abdominal pain, Denies change in bowel habits, Denies excessive flatus, Denies nausea and Denies vomiting Neuro Denies lack of coordination Physical exam (Primary Care) Vital Signs: Last Vital Signs Pulse 51 01/25/25 09:31 BP 122/84 01/25/25 09:31 Pulse Ox 96 01/25/25 09:31 Oxygen Delivery Method Room Air 01/25/25 09:31 BMI result Body Mass Index 29.5 Tobacco/Smoking Status: Tobacco use Status Tobacco use date assessed 01/25/25 01/25/25 09:40 Patient Tobacco Use Status Former Tobacco user 01/25/25 09:40 Tobacco use type Cigarette 01/25/25 09:40 e-Cigarette/Vaping Use Never Used 01/25/25 09:40 PHQ-9: PHQ-9 Score PHQ-9: Total score 1 01/25/25 10:08 Depression Screening Interpretation: Positive Depression Screening Follow-up: Existing condition and Follow-up Visit Requested Thrive Assessment: Date of Thrive Assessment Date Thrive assessed 01/25/25 01/25/25 09:40 Currently or been in a relationship where the following occur: No concerns reported [facility] Head: Yes normal to inspection, Yes normocephalic and Yes atraumatic Ears: external ears normal Eyes General: appearance normal, both eyes and all related structures Eyelids: Yes eyelids normal Conjunctivae: conjunctivae normal Neck Neck: Yes normal visual inspection and Yes supple Resp Effort & Inspection: normal respiratory effort Auscultation: clear to auscultation bilaterally Cardio Jugular venous distension: no JVD Rate: regular rate Rhythm: regular rhythm Heart sounds: S1 normal heart sound present and S2 normal heart sound present GI Inspection: Yes normal to inspection Palpation (GI): Soft to palpation and nontender Auscultation: normal bowel sounds Skin General skin exam: no rashes or lesions noted Neuro General: no focal motor deficits Extrem General: Yes full ROM Psych Appearance: grossly normal Immunizations Boostrix Tdap 2.5 Lf unit-8 mcg-5 Lf/0.5 mL intramuscular syringe Performing Provider: Rajani Villalta MD Performing Location: [facility] [place] [facility] Administered by: Brisa Ch LPN on 01/25/25 10:06 Dose Route Admin Location Dispensed Lot Number Expiration Date ND Fisher Scallop 0.5 mL IM Left Deltoid 0.5 mL [id number] 03/17/27 03254-613-65 [employer] VIS Given Date VIS Provided VIS Publication Date 01/25/25 Single Vaccine 21 Eligibility Eligibility Date Funding Source Not [facility] Eligible 01/25/25 Private Coding Level of Care Code Est Pt Level 3 (25591) Est Pt Prev Care 40-64y(60539) Diagnoses Physical exam Z00.00 Chronic idiopathic constipation K59.04 Mild major depression F32.0 Insomnia G47.00 Dyslipidemia E78.5 Additional Codes MARU-7 Assessment Billing - MARU-7 Assessment Tool: MARU-7 Assessment 27097 ([id number]) PHQ-9 - 22620 - PHQ-9 Billing: Yes ([id number]) Time Spent (min) 33 Assessment & Plan Assessment & Plan (1) Physical exam: Code(s): Z00.00 - Encounter for general adult medical examination without abnormal findings Category: Medical (2) Chronic idiopathic constipation: Code(s): K59.04 - Chronic idiopathic constipation Category: Medical (3) Mild major depression: Code(s): F32.0 - Major depressive disorder, single episode, mild Category: Medical (4) Insomnia: Code(s): G47.00 - Insomnia, unspecified Category: Medical (5) Dyslipidemia: Code(s): E78.5 - Hyperlipidemia, unspecified Category: Medical Plan The plan includes delivering the tetanus vaccine and continuing lipid management with atorvastatin 80 mg, while adding fenofibrate 54 mg for triglyceride control. Scheduled repeat labs in six months will monitor progress. Management of the gastric ulcer involves follow-up endoscopy in gastroenterology. Address mild depression through gabapentin for sleep and pain, with therapy as an optional consideration. Constipation is managed with MiraLAX, and patient is urged to adjust dietary habits further. Patient was informed and verbally consented to the use of an ambient scribe for clinic note documentation during this visit. We discussed the patient's elevated cholesterol and triglycerides, and I recommended adding fenofibrate to his regimen alongside atorvastatin to improve lipid control. We talked about the importance of regular lab follow-ups for effective management. I also addressed his gastrointestinal symptoms related to an existing ulcer. I suggested continuing with planned endoscopy under gastroenterology oversight. We talked about immunization for tetanus and offered administration today. Gabapentin was discussed as a continuing strategy for sleep and back pain, while MiraLAX was addressed for constipation relief. I provided education on dietary impacts on gastric health and lipids. Orders: Orders Lipid Panel 6 Months E78.5 - Hyperlipidemia, unspecified Comprehensive [place]. Panel Fast 6 Months K26.9 - Duodenal ulcer, unspecified as acute or chronic, without hemorrhage or perforation TDaP Immunization Today Z23 - Encounter for immunization Medications: New fenofibrate 54 mg PO DAILY 90 tabs 1RF 90 days gabapentin 300 mg PO BEDTIME 90 caps 1RF 90 days Refilled polyethylene glycol 3350 (Miralax) 17 grams PO DAILY PRN 30 ea 4RF constipation 30 days atorvastatin 80 mg PO DAILY 90 tabs 3RF 90 days Discontinued gabapentin Discontinued Reason: Patient Completed Course 100 mg PO BEDTIME 30 days 30 caps 2RF Patient Instructions: - Receive tetanus vaccine today. - Continue current atorvastatin regimen; begin fenofibrate as prescribed. - Schedule and complete follow-up lab tests in 6 months. - Attend planned gastroenterology endoscopy. - Maintain current gabapentin and MiraLAX usage as needed. - Adjust dietary habits to support health and lipid management. - Return for follow-up or if symptoms worsen.
--- OUTSIDE RECORDS SUMMARY | 2025-01-25 10:36 | XMS_ITS ---
Author Organization [facility] Address [address] [place] [address] Care Team Providers Care Limousine Driver Name Role Phone Rajani Rg Primary Care [...] No Points 0 Interpretation Negative VITAL SIGNS Blood pressure systolic 00 mm Hg 06/08/20 24 Blood pressure diastolic 00 mm Hg 024 Height 5 ft 9 in in 06/08/2024 Weight 184 lbs 06/08/2024 BMI 27.17 kg/m2 06/08/2024 Encounters Encounter Location Date Provider Diagnosis [facility] [address] [place] [address] 06/08/2024 oRly Islas Jr Epigastric pain R10.13 ASSESSMENTS Encounter [...] Provider Name:Roly wolf Jr, 06/06/2025 11:10:00 AM, [address] [place] [address], [address], [place], [address],
--- OUTSIDE RECORDS SUMMARY | 2025-01-25 10:37 | XMS_ITS | Patient Health Record ---
Author Organization [facility] Address [address] [place] [address] Care Team Providers Care Honey Grader And Blender Name Role Phone Rajani Rg Primary Care Provider UnavailRoly Buck Jr Unavailable [phone] ALLERGIES No Known Allergies REASON FOR REFERRAL [...] Notes Problem Epigastric pain (R10.13) Active confirmed [id number] VITAL SIGNS Blood pressure diastolic 00 mm Hg 06/08/2024 Height 5 ft 9 in in 06/08/2024 Blood pressure systolic 00 mm Hg 06/08/2024 Weight 184 lbs 06/08/2024 BMI 27.17 kg/m2 06/08/2024 Encounters Encounter Location Date Provider Diagnosis [facility] [address] [place] [address] 05/08/2024 Roly Islas Jr [facility] [address] [place] [phone] 10/13/2024 Roly Islas Jr [facility] [address] [place] [address] 06/08/2024 Roly Islas Jr Epigastric pain R10.13 [facility] [address] [place] [address] 02/16/2024 Roly Islas Jr [facility] [address] [place] [address] 10/13/2024 Roly Islas Jr ASSESSMENTS Encounter Date Diagnosis Assessment Notes Treatment Notes Treatment Clinical Notes 06/08/2024 Epigastric pain (ICD-10 - R10.13) Gastroesophageal reflux disease material was printed PLAN OF TREATMENT Pending Test Test Name Order Date LIVER PROFILE 11/04/2023 LIPASE 11/04/2023 CBC w/o DIFF 11/04/2023 US ABD 11/04/2023 Next Appt Details Provider Name:Roly Tayla wolf Jr, 06/06/2025 11:10:00 AM, [address], [address] [facility], [place], [address], Insurance Providers Payer Name Payer Address Payer Phone Subscriber Number Group Number Insured Name Patient Relationship to Insured Coverage Start Date Coverage End Date [employer] [facility] [address] Attn Claims GENNY Baer [id number] SUZANNE BRANCH Self - patient is the insured MEDICAID OF [employer] [facility] [address] [place] [address] [phone] [id number] SUZANNE BRANCH Self - patient is the [...] 10/16, normal, t en-year followup (Dr. Conteh [facility]) Surgical History Surgery Date(Month/Year) hip replacement
--- OUTSIDE RECORDS SUMMARY | 2025-01-25 10:37 | XMS_ITS ---
Author Organization [facility] Address [address] [place] [address] Care Team Providers Care Biomed Tech Name Role Phone Rajani Rg Primary Care Provider Unavailab Roly Fuchs Jr [phone] REASON FOR VISIT Pt no show Encounters Encounter Location Date Provider Diagnosis [facility] [address] [place] [address] 10/13/2024 Roly Islas Jr PLAN OF TREATMENT Next Appt Details Provider Name:Roly wolf Jr, 06/06/2025 11:10:00 AM, [address], [address], [place], [address],
--- OUTSIDE RECORDS SUMMARY | 2025-01-25 10:37 | XMS_ITS ---
Author Organization [facility] Address [address] [place] [address] Care Team Providers Care Outside Production Inspector Name Role Phone Rajani Rg Primary Care Provider Unavailab Roly Fuchs Jr [phone] REASON FOR VISIT relux,abdominal bloating Encounters Encounter Location Date Provider Diagnosis [facility] [place] [address] [place], [place] [id number] 10/13/2024 Roly Islas Jr PLAN OF TREATMENT Next Appt Details Provider Name:Roly wolf Jr, 06/06/2025 11:10:00 AM, [address], [address], [place], [address],
== END 2025-01-25 10:05 | disposition home or self-care (01) ==
PROVIDERS: PCP Internal Medicine; Visit Provider Internal Medicine
DX: Z00.00 Encounter for general adult medical examination without abnormal findings (principal); K59.04 Chronic idiopathic constipation; F32.0 Major depressive disorder, single episode, mild; G47.00 Insomnia, unspecified; E78.5 Hyperlipidemia, unspecified; Z23 Encounter for immunization

== ENCOUNTER → 2025-01-25 09:25 | Outpatient (BNVA) | payer OTHER, SELFPAY | PROVIDERS: PCP Internal Medicine; Visit Provider Internal Medicine | DX: Z00.00 Encounter for general adult medical examination without abnormal findings (principal); Z23 Encounter for immunization; K59.04 Chronic idiopathic constipation; F32.0 Major depressive disorder, single episode, mild; G47.00 Insomnia, unspecified; E78.5 Hyperlipidemia, unspecified | CPT/HCPCS: 90471; 90715; 96127; 99212; 99396 ==

== ENCOUNTER 2025-07-25 09:54 | Outpatient (AMB) | payer OTHER, SELFPAY ==
[2025-07-25 09:56] VITALS: BP 118/70; PULSE 61; O2SAT 97; BMI 28.8
--- NOTE | 2025-07-25 09:56 | MHC.PC.OV ---
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 Accompanied by: Self / Same As Patient Allergies No Known Allergies Allergy (Verified 07/25/25 10:11) Medication List - Last Reconciled 07/25/25 by Rajani Villalta MD atorvastatin 80 mg PO DAILY 90 days cholecalciferol (vitamin D3) 25 mcg PO DAILY 90 days famotidine (Pepcid) 40 mg PO BEDTIME fenofibrate 54 mg PO DAILY 90 days gabapentin 300 mg PO BEDTIME 90 days lansoprazole 30 mg PO BID plecanatide (Trulance) 3 mg PO DAILY polyethylene glycol 3350 (Miralax) 17 grams PO DAILY PRN 30 days trazodone 50 mg PO BEDTIME PRN 90 days Tobacco use date assessed: 07/25/25 Dental Screening Dental Screen Date: 07/25/25 Did you have a dental visit in the last 12 months?: Yes Did you have a dental problem in the last 6 months where you did not have access to dental care?: No Was dental information given to patient?: Patient has dentist HPI HPI Comments History of Present Illness Details The patient is a 59-year-old male presenting with hyperlipidemia. He is currently on atorvastatin 80 mg for cholesterol management and fenofibrate 54 mg for triglycerides. The patient reports that his cholesterol levels were medium high during the last lab tests. The patient also experiences constipation, for which he is taking Trulance and MiraLAX. He reports that these medications are working well for him. The patient has a history of insomnia and is currently taking trazodone for sleep, which he finds effective. He reports a history of costochondritis, which is characterized by chest pain that has been evaluated with normal electrocardiograms. The pain is attributed to the calcium level of the ribs and is consistent with previous assessments. The patient has a history of smoking and alcohol use, both of which he has ceased. He denies any current depression, noting that his PHQ-9 score is low and he feels more content. [facility] Medical History Physical exam Chest pain Pulmonary nodule Right hand pain Total bilirubin, elevated Insomnia Right hip pain Dyslipidemia H. pylori infection Surgical History History of esophagogastroduodenoscopy (EGD) Hx of colonoscopy Family History Father No problems noted. Mother Hypercholesteremia Heart problem Diabetes Social History Household Members: Family Housing: Apartment Alcohol intake: former Patient Tobacco Use Status: Former Tobacco user Tobacco use type: Cigarette e-Cigarette/Vaping Use: Never Used Second Hand Smoke Exposure: No service: No Current occupational status: disabled Cognitive needs: No Hearing needs: No Vision needs: Yes Questionnaire PHQ-9 Over the last 2 weeks, how often have you been bothered by any of the following problems? 1. Little interest or pleasure in doing things: not at all 2. Feeling down, depressed, or hopeless: several days 3. Trouble falling or staying asleep, or sleeping too much: not at all 4. Feeling tired or having little energy: not at all 5. Poor appetite or overeating: not at all 6. Feeling bad about yourself - or that you are a failure or have let yourself or your family down: not at all 7. Trouble concentrating on things, such as reading the newspaper or watching television: not at all 8. Moving or speaking so slowly that other people could have noticed. Or the opposite - being so fidgety or restless that you have been moving around a lot more than usual: not at all 9. Thoughts that you would be better off or of hurting yourself in some way: not at all Total score: 1 Depression Screening Interpretation: Positive Depression Screening Follow-up: Existing condition and Follow-up Visit Requested Depression Screening Done: Yes 89894 - PHQ-9 Billing: Yes Source: Developed by Drs. Abbe Mata, Adeline Betancourt, Rebel Kong and colleagues, with an educational maribel from [employer]. Thrive Questionnaire Date Thrive assessed: 07/25/25 I am a: Patient What is your living situation today?: I have a steady place to live Within the past 12 months, did the food you bought not last and you didn't have the money to get more?: Never true Within the past 12 months, did you worry whether your food would run out before you got money to buy more?: Never true Do you have trouble paying for medicines?: No Do you have trouble getting transportation to medical appointments?: No Do you have trouble paying your heating and electricity bill?: No Do you have trouble taking care of your child, family member or friend?: No Do you have trouble with day-to-day activities such as bathing, preparing meals, shopping, managing finances, etc.?: No Are you currently unemployed and looking for a job?: No Are you interested in more education?: No Please select the resources that you would like help with: None Currently or been in a relationship where the following occur: No concerns reported THRIVE Score: 0 AUDIT C Alcohol Use Questionnaire (AUDIT-C) 1. How often do you have a drink containing alcohol?: Never 3. How often do you have six or more drinks on one occasion?: Never Total Score: 0 Score Reviewed/Action Taken: No MARU-7 AMB Questionnaire MARU-7 Date MARU - 7 assessed: 07/25/25 Feeling nervous, anxious, or on edge: 0 = Not at all Not being able to stop or control worryin = Not at all Worrying too much about different things: 0 = Not at all Trouble relaxin = Not at all Being so restless that it is hard to sit still: 0 = Not at all Becoming easily annoyed or irritable: 0 = Not at all Feeling afraid as if something awful might happen: 0 = Not at all Total MARU-7 score (0-4 normal; 5-9 mild; 10-14 moderate; 15-21 severe): 0 Source: Developed by Drs. Abbe Mata, Adeline Betancourt, Rebel Kong and colleagues, with an educational maribel from [employer]. MARU-7 Assessment Billing MARU-7 Assessment Tool: MARU-7 Assessment 84113 Review of Systems Const All systems reviewed & are unremarkable except as noted in HPI and below Card Denies chest pain at rest, Denies chest pain with activity, Denies edema, Denies irregular heart rhythm, Denies claudication, Denies dyspnea, Denies dyspnea on exertion, Denies orthopnea, Denies paroxysmal nocturnal dyspnea and Denies slow heart rate Resp Denies cough, Denies dyspnea and Denies dyspnea on exertion GI Denies abdominal pain, Denies change in bowel habits, Denies excessive flatus, Denies nausea and Denies vomiting Physical exam (Primary Care) Vital Signs: Last Vital Signs Pulse 61 07/25/25 09:56 BP 118/70 07/25/25 09:56 Pulse Ox 97 07/25/25 09:56 Oxygen Delivery Method Room Air 07/25/25 09:56 BMI result Body Mass Index 28.8 Tobacco/Smoking Status: Tobacco use Status Tobacco use date assessed 07/25/25 07/25/25 09:59 Patient Tobacco Use Status Former Tobacco user 07/25/25 09:59 Tobacco use type Cigarette 07/25/25 09:59 e-Cigarette/Vaping Use Never Used 07/25/25 09:59 PHQ-9: PHQ-9 Score PHQ-9: Total score 1 07/25/25 10:07 Depression Screening Interpretation: Positive Depression Screening Follow-up: Existing condition and Follow-up Visit Requested Thrive Assessment: Date of Thrive Assessment Date Thrive assessed 07/25/25 07/25/25 09:59 Currently or been in a relationship where the following occur: No concerns reported Resp Effort & Inspection: normal respiratory effort Auscultation: clear to auscultation bilaterally Cardio Jugular venous distension: no JVD Rate: regular rate Rhythm: regular rhythm Heart sounds: S1 normal heart sound present and S2 normal heart sound present Extrem General: Yes full ROM Coding Level of Care Code Est Pt Level 4 (37009) Complex EM visit Add On G2211 Diagnoses Dyslipidemia E78.5 Mild major depression F32.0 Hypovitaminosis D E55.9 GERD (gastroesophageal reflux disease) K21.9 Chronic idiopathic constipation K59.04 Additional Codes PHQ-9 - 79286 - PHQ-9 Billing: Yes ([id number]) MARU-7 Assessment Billing - MARU-7 Assessment Tool: MARU-7 Assessment 65968 ([id number]) Time Spent (min) 20 Assessment & Plan Assessment & Plan (1) Dyslipidemia: Code(s): E78.5 - Hyperlipidemia, unspecified Category: Medical (2) Mild major depression: Code(s): F32.0 - Major depressive disorder, single episode, mild Category: Medical (3) Hypovitaminosis D: Code(s): E55.9 - Vitamin D deficiency, unspecified Category: Medical (4) GERD (gastroesophageal reflux disease): Code(s): K21.9 - Gastro-esophageal reflux disease without esophagitis Category: Medical (5) Chronic idiopathic constipation: Code(s): K59.04 - Chronic idiopathic constipation Category: Medical Plan Plan Patient was informed and verbally consented to the use of an ambient scribe for clinic note documentation during this visit. 1. Hyperlipidemia, unspecified E78.5 The patient is currently on atorvastatin 80 mg and fenofibrate 54 mg for the management of hyperlipidemia. A follow-up lab test is planned to reassess cholesterol and triglyceride levels, with the possibility of discontinuing fenofibrate if triglycerides are below 500 mg/dL. 2. Slow transit constipation K59.01 The patient is managing constipation with Trulance and MiraLAX, which he reports are effective. 3. Insomnia, unspecified G47.00 The patient is taking trazodone for insomnia, which he finds effective in improving sleep quality. 4. Major depressive disorder, single episode, mild F32.0 HCC 59 5. Gastro-esophageal reflux disease without esophagitis K21.9 Orders: Orders Lipid Panel 6 Months E78.5 - Hyperlipidemia, unspecified
== END 2025-07-25 10:24 | disposition home or self-care (01) ==
LOC: HO.HMCH 09:55
PROVIDERS: PCP Internal Medicine; Visit Provider Internal Medicine
DX: E78.5 Hyperlipidemia, unspecified (principal); F32.0 Major depressive disorder, single episode, mild; E55.9 Vitamin D deficiency, unspecified; K21.9 Gastro-esophageal reflux disease without esophagitis; K59.04 Chronic idiopathic constipation

== ENCOUNTER → 2025-07-25 09:54 | Outpatient (BNVA) | payer OTHER, SELFPAY | PROVIDERS: PCP Internal Medicine; Visit Provider Internal Medicine | DX: E78.5 Hyperlipidemia, unspecified (principal); G47.00 Insomnia, unspecified; M94.0 Chondrocostal junction syndrome [Tietze]; F32.0 Major depressive disorder, single episode, mild; E55.9 Vitamin D deficiency, unspecified; K21.9 Gastro-esophageal reflux disease without esophagitis; K59.04 Chronic idiopathic constipation; Z87.891 Personal history of nicotine dependence; Z79.899 Other long term (current) drug therapy | CPT/HCPCS: 96127; 99212 ==

== ENCOUNTER 2025-08-03 09:37 | Outpatient (REF) | payer OTHER, SELFPAY ==
[2025-08-03 13:50] LABS: Alanine Aminotransferase 28 U/L (0-40); Albumin Level 4.6 g/dL (3.5-5.0); Alkaline Phosphatase 93 U/L (39-117); Anion Gap 10 (12-20); Aspartate Amino Transferase 30 U/L (5-37); Blood Urea Nitrogen 20 mg/dL (9-16); Calcium 9.5 mg/dL (8.4-10.2); Carbon Dioxide 28 mmol/L (22-29); Chloride 106 mmol/L (96-108); Cholesterol 210 mg/dL (<200); Estimated Glomerular Filt Rate > 60; HDL Cholesterol 51 mg/dL (>40); Potassium 3.8 mmol/L (3.3-5.1); Sodium 140 mmol/L (135-145); Total Protein 7.2 g/dL (6.5-8.0); Triglycerides 127 mg/dL (<150)
== END 2025-08-03 09:38 | disposition home or self-care (01) ==
LOC: HO.HMGCLDS 09:37
PROVIDERS: PCP Internal Medicine; Visit Provider Student in an Organized Health Care Education/Training Program
DX: K26.9 Duodenal ulcer, unspecified as acute or chronic, without hemorrhage or perforation (principal); E78.5 Hyperlipidemia, unspecified
CPT/HCPCS: 36415; 80053; 80061